=== PATIENT | female | born 1985 | race Caucasian/White ===

== ENCOUNTER 2017-05-21 11:18 | Emergency (ER) | payer BC, OTHER ==
--- NOTE | 2017-05-21 12:34 | ED ---
Fever HPI - General Chief Complaint: Fever Stated Complaint: Fever Time Seen by Provider: 05/21/17 12:06 Source: patient, RN notes reviewed Mode of arrival: ambulatory Limitations: no limitations - History of Present Illness Initial Comments: This is a 31-year-old female who presents to the emergency department with chief complaint of fever. Patient states that she feels like she may have the flu. She states she has been having fevers, chills and body aches. 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 Patient states that her symptoms began yesterday evening. Patient also states that she believes she may have a UTI she is experiencing dysuria and increased frequency. This started yesterday. Denies chest pain, shortness of breath, abdominal pain, nausea or vomiting, constipation or diarrhea, numbness or tingling, headache or vision changes. - Related Data Home Medications Medication Instructions Recorded Confirmed Acetaminophen Tab [Tylenol Tab] 1,000 mg PO Q6HR PRN 03/26/15 03/28/15 Ibuprofen [Motrin] 400 - 600 mg PO Q6HR PRN 03/26/15 03/28/15 Previous Rx's Medication Instructions Recorded Oseltamivir [Tamiflu] 75 mg PO Q12HR #10 cap 05/21/17 Sulfamethox-Tmp 800-160Mg [Bactrim 1 tab PO Q12HR #10 tab 05/21/17 DS 800-160 mg] Allergies Allergy/AdvReac Type Severity Reaction Status Date / Time No Known Allergies Allergy Verified 03/28/15 11:18 Review of Systems ROS Statement: Those systems with pertinent positive or pertinent negative responses have been documented in the HPI. ROS Other: All systems not noted in ROS Statement are negative. Past Medical History Past Medical History: No Reported History Additional Past Medical History / Comment(s): STATES OCCASIONAL HEART FLUTTER IF NERVOUS OR STRESSED- HAS NEVER HAD CHECKED OUT. JUST DELIVERED 01/10/15- PT IS HAVING PAIN WITH WISDOM TOOTH LOWER LEFT SIDE History of Any Multi-Drug Resistant Organisms: None Reported Past Surgical History: No Surgical Hx Reported Past Anesthesia/Blood Transfusion Reactions: No Reported Reaction Past Psychological History: No Psychological Hx Reported Smoking Status: Never smoker - Past Family History Mother Family Medical History: Hypertension General Exam - General Exam Comments Initial Comments: General: Awake and alert, well-developed; in no apparent distress. Patient is very warm to the touch. HEENT: Head atraumatic, normocephalic. Pupils are equal, round and reactive to light. Extraocular movements intact. Oropharynx moist without erythema or exudate. Neck: Supple. Normal ROM. Cardiovascular: Regular rate and rhythm. No murmurs, rubs or gallops. Chest symmetrical. Respiratory: Lungs clear to auscultation bilaterally. No wheezes, rales or rhonchi. Normal respiratory effort with no use of accessory muscles. Abdomen: Soft, non-tender, non-distended. No rigidity, rebound or guarding. Musculoskeletal: Normal ROM, no tenderness bilateral upper and lower extremities. Skin: [place], warm and dry without rashes or lesions. Neurological: Alert and oriented x3. CN II-XII grossly intact. Speech is fluent and answers are appropriate. No focal neuro deficits. Psychiatric: Normal mood and affect. No overt signs of depression or anxiety noted. Limitations: no limitations Course Vital Signs 05/21/17 11:41 Temperature 100.2 F H Pulse Rate 128 H Respiratory 22 Rate Blood Pressure 144/81 O2 Sat by Pulse 98 Oximetry Medical Decision Making - Medical Decision Making This is a 31-year-old female who presents to the emergency department with chief complaint of fever, chills and body aches since yesterday afternoon. 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 She will be started on Tamiflu. Patient also complained of dysuria and increased frequency in urination that started yesterday. UA revealed positive leukocyte esterase and a high white count. Patient will be treated with Bactrim for a urinary tract infection. Patient is in no acute distress at this time. She'll be discharged home. - Lab Data Lab Results 05/21/17 Range/Units 12:21 Urine Color Yellow Urine Appearance Clear (Clear) Urine pH 7.0 (5.0-8.0) Ur Specific [place] 1.020 (1.001-1.035) Urine Protein Trace H (Negative) Urine Glucose (UA) Negative (Negative) Urine Ketones 1+ H (Negative) Urine Blood Negative (Negative) Urine Nitrite Negative (Negative) Urine Bilirubin Negative (Negative) Urine Urobilinogen <2.0 (<2.0) mg/dL Ur Leukocyte Esterase Moderate H (Negative) Urine WBC 45 H (0-5) /hpf Ur Squamous Epith Cells <1 (0-4) /hpf Urine Bacteria Rare H (None) /hpf Urine Mucus Rare H (None) /hpf Disposition Clinical Impression: Influenza, Urinary tract infection Disposition: HOME SELF-CARE Condition: Good Instructions: Influenza (ED), Urinary Tract Infection in Women (ED) Additional Instructions: Please take medications as prescribed. Please drink plenty of fluids. Please follow up with primary care provider within 1-2 days. Return to emergency department if symptoms should worsen or any concerns arise. Prescriptions: Oseltamivir [Tamiflu] 75 mg PO Q12HR #10 cap Sulfamethox-Tmp 800-160Mg [Bactrim DS 800-160 mg] 1 tab PO Q12HR #10 tab Referrals: None,Stated [Primary Care Provider] - 1-2 days Time of Disposition: 13:13
[2017-05-21 12:48] LABS: Appearance,Urine Clear (Clear); Bacteria,Urine Rare /hpf; Bilirubin,Urine Negative (Negative); Blood,Urine Negative (Negative); Color,Urine Yellow; Glucose,Urine (UA) Negative (Negative); Ketones,Urine 1+ (Negative); Leukocyte Esterase,Urine Moderate (Negative); Mucus,Urine Rare /hpf; Nitrite,Urine Negative (Negative); Protein,Urine Trace (Negative); Squamous Epithelial Cell,Urine <1 /hpf (0-4); Urobilinogen,Urine <2.0 mg/dL (<2.0); WBC,Urine 45 /hpf (0-5)
[2017-05-21 13:14] VITALS: BP 134/61; PULSE 114; RESP 18; TEMP 99.8
== END 2017-05-21 13:25 | disposition home or self-care (01) ==
LOC: EC 11:18
DX: J11.1 Influenza due to unidentified influenza virus with other respiratory manifestations (principal); N39.0 Urinary tract infection, site not specified; D72.829 Elevated white blood cell count, unspecified
CPT/HCPCS: 81001; 99283

== ENCOUNTER 2017-10-21 05:13 | Emergency (ER) | payer BC ==
[2017-10-21 05:17] VITALS: BP 142/85; PULSE 85; RESP 16; TEMP 98.3
[2017-10-21] MEDS ORDERED: PENICILLIN VK 500MG STARTER 4 TAB BTL PO STA (07:21)
[2017-10-21] MEDS ORDERED: BUPIVACAINE (PF) 0.5% 30 ML VIAL SQ STA (07:21)
--- NOTE | 2017-10-21 07:26 | ED ---
ENT HPI - General Chief complaint: Dental/Oral Stated complaint: Dental Pain Time Seen by Provider: 10/21/17 07:15 Source: patient, RN notes reviewed, old records reviewed Mode of arrival: ambulatory Limitations: no limitations - History of Present Illness Initial comments: This patient's a 31-year-old female chief complaint of right lower dental pain. She reports it started around 11 AM p.m. last night. Patient states that she does have decayed teeth 30 and 31. She reports she does not see dose at this time. She states that he feels throbbing in pain shoots to the back right ear and neck. Patient reports no trismus. No foul taste or floaters in her mouth.Patient denies any recent fever, chills, shortness of breath, chest pain, back pain, abdominal pain, nausea vomiting, numbness or tingling, dysuria or hematuria, constipation or diarrhea, headaches or visual changes, or any other current symptoms - Related Data Home Medications Medication Instructions Recorded Confirmed Acetaminophen Tab [Tylenol Tab] 1,000 mg PO Q6HR PRN 03/26/15 03/28/15 Ibuprofen [Motrin] 400 - 600 mg PO Q6HR PRN 03/26/15 03/28/15 Previous Rx's Medication Instructions Recorded Oseltamivir [Tamiflu] 75 mg PO Q12HR #10 cap 05/21/17 Sulfamethox-Tmp 800-160Mg [Bactrim 1 tab PO Q12HR #10 tab 05/21/17 DS 800-160 mg] Acetaminophen-Codeine 300-30mg 1 tab PO Q4H PRN 3 Days #15 tablet 10/21/17 [Tylenol w/codeine #3] Penicillin V Potassium [Pen Vee K] 500 mg PO QID #40 tablet 10/21/17 Allergies Allergy/AdvReac Type Severity Reaction Status Date / Time No Known Allergies Allergy Verified 10/21/17 05:16 Review of Systems ROS Statement: Those systems with pertinent positive or pertinent negative responses have been documented in the HPI. ROS Other: All systems not noted in ROS Statement are negative. Past Medical History Past Medical History: No Reported History Additional Past Medical History / Comment(s): STATES OCCASIONAL HEART FLUTTER IF NERVOUS OR STRESSED- HAS NEVER HAD CHECKED OUT. JUST DELIVERED 01/10/15- PT IS HAVING PAIN WITH WISDOM TOOTH LOWER LEFT SIDE History of Any Multi-Drug Resistant Organisms: None Reported Past Surgical History: No Surgical Hx Reported Past Anesthesia/Blood Transfusion Reactions: No Reported Reaction Past Psychological History: No Psychological Hx Reported Smoking Status: Never smoker - Past Family History Mother Family Medical History: Hypertension General Exam - General Exam Comments Initial Comments: This Patient with her 31-year-old female. Alert and oriented. No acute distress. General: Well appearing, well nourished, in no distress. Oriented x 3, normal mood and affect . Ambulating without difficulty. Skin: Good turgor, no rash, unusual bruising or prominent lesions Hair: Normal texture and distribution. HEENT: Head: Normocephalic, atraumatic, no visible or palpable masses, depressions, orEars: EACs clear, TMs translucent & cone of light visualized. hearing intact. Nose: No external lesions, mucosa non-inflamed, septum and turbinates normal Mouth: Mucous membranes moist, no mucosal lesions. Teeth/Gums: Patient has evidence of dental caries of her teeth #30 and 31. Some gingival irritation. Pharynx: Mucosa non-inflamed, no tonsillar hypertrophy or exudate Neck: Supple, without lesions, bruits, or adenopathy, thyroid non-enlarged and non-tender Heart: No cardiomegaly or thrills; regular rate and rhythm, no murmur or gallop Lungs: Clear to auscultation and percussion Musculoskeletal: Normal gait and station. No misalignment, asymmetry, crepitation, defects, tenderness, masses, effusions, decreased range of motion, instability, atrophy or abnormal strength or tone in the head, neck, spine, ribs , pelvis or extremities. Neurologic: CN 2-12 normal. Sensation to pain, touch, and proprioception normal. DTRs normal in upper and lower extremities. No pathologic reflexes. Psychiatric: Oriented X3, intact recent and remote memory, judgment and insight , normal mood and affect. Limitations: no limitations Course Vital Signs 10/21/17 05:14 Temperature 98.3 F Pulse Rate 85 Respiratory 16 Rate Blood Pressure 142/85 O2 Sat by Pulse 100 Oximetry Procedures - Nerve Block Local Anesthetic Used: Marcaine 0.5% Amount of anesthesia used: 3 Side: right Intraoral Nerve Block: inferior alveolar Procedure Successful: Yes Complications: none Patient Tolerated Procedure: well, no complications Medical Decision Making - Medical Decision Making Patient is a 31-year-old female.Her wrist due to complaint of right lower dental pain for the past day. She has had caries over 30 and 31. Patient is given an inferior alveolar block and started on Pen-Vee K. I discussed following up with a dentist for further evaluation and tooth removal. Patient agrees treatment plan will comply. Discussed that there is any worsening redness or swelling of the come she may return for drainage of an abscess. Patient agrees treatment plan will comply. Return parameters were discussed. Disposition Clinical Impression: Dental caries, Toothache Disposition: HOME SELF-CARE Condition: Good Instructions: Dental Caries (ED) Additional Instructions: [facility] [address] [place] [address] [phone] (existing clients only) For new clients: [phone] 1st consult: $50 (includes Xrays) Usually 30% less then private dentist for visits after. [employer] Have to pay $50 for Xrays anmd rest is covered. [phone] Complete entire antibiotic prescription. Follow-up with dentist. Return to the emergency department if any alarming signs or symptoms occur. Prescriptions: Acetaminophen-Codeine 300-30mg [Tylenol w/codeine #3] 1 tab PO Q4H PRN 3 Days # 15 tablet PRN Reason: Pain Penicillin V Potassium [Pen Vee K] 500 mg PO QID #40 tablet Is patient prescribed a controlled substance at d/c from ED?: Yes When asked, does pt state using other controlled substances?: Yes If prescribed controlled substance>3 days was MAPS reviewed?: Prescribed <3 Days If opioid is for acute pain is fill amount 7 days or less?: Yes If Rx opioid, was Start Talking consent form obtained?: Yes Referrals: None,Stated [Primary Care Provider] - 1-2 days Winter Coello MD [STAFF PHYSICIAN] - 1-2 days Time of Disposition: 07:25
== END 2017-10-21 07:52 | disposition home or self-care (01) ==
LOC: EC 05:13
DX: K02.9 Dental caries, unspecified (principal)
CPT/HCPCS: 64400; 99283

== ENCOUNTER → 2020-04-13 | Outpatient (CLI) | payer MEDICAID | END | disposition home or self-care (01) | LOC: LABMAIN 23:18 | PROVIDERS: ATTEND Specialist/Technologist Athletic Trainer | DX: Z20.828 Contact with and (suspected) exposure to other viral communicable diseases (principal) | CPT/HCPCS: 87635 ==

== ENCOUNTER → 2021-01-07 | Outpatient (CLI) | payer MEDICAID, OTHER | END | disposition home or self-care (01) | LOC: LABWHC1 08:31 | PROVIDERS: ATTEND Emergency Medicine | DX: Z20.822 Contact with and (suspected) exposure to COVID-19 (principal) | CPT/HCPCS: 87635 ==

== ENCOUNTER → 2021-03-04 | Outpatient (CLI) | payer MEDICAID, OTHER | END | disposition home or self-care (01) | LOC: LABWHC1 08:57 | PROVIDERS: ATTEND Emergency Medicine | DX: Z03.818 Encounter for observation for suspected exposure to other biological agents ruled out (principal); Z20.822 Contact with and (suspected) exposure to COVID-19 | CPT/HCPCS: 87635 ==

== ENCOUNTER → 2021-03-05 | Outpatient (CLI) | payer MEDICAID, OTHER | END | disposition home or self-care (01) | LOC: LABWHC1 09:03 | PROVIDERS: ATTEND Emergency Medicine | DX: Z03.818 Encounter for observation for suspected exposure to other biological agents ruled out (principal); Z20.828 Contact with and (suspected) exposure to other viral communicable diseases | CPT/HCPCS: 87635 ==

== ENCOUNTER → 2021-04-14 | Outpatient (CLI) | payer MEDICAID, OTHER | END | disposition home or self-care (01) | LOC: LABWHC1 11:15 | PROVIDERS: ATTEND Emergency Medicine | DX: U07.1 COVID-19 (principal) | CPT/HCPCS: 87635 ==

== ENCOUNTER → 2021-04-16 | Outpatient (CLI) | payer MEDICAID, OTHER | END | disposition home or self-care (01) | LOC: LABWHC1 08:14 | PROVIDERS: ATTEND Emergency Medicine | DX: Z11.52 Encounter for screening for COVID-19 (principal); Z20.822 Contact with and (suspected) exposure to COVID-19 | CPT/HCPCS: 87635 ==

== ENCOUNTER → 2021-08-31 | Outpatient (CLI) | payer MEDICAID, OTHER | END | disposition home or self-care (01) | LOC: LAB 12:37 | PROVIDERS: ATTEND Physician Assistant | DX: U07.1 COVID-19 (principal) | CPT/HCPCS: 87502; 87635 ==

== ENCOUNTER 2021-10-16 02:11 | Observation (INO) | payer MEDICAID, OTHER ==
[2021-10-16] MEDS ORDERED: KETOROLAC 15 MG/ML 1 ML VIAL IVP STA ×2 (02:31→08:22)
[2021-10-16] MEDS ORDERED: MORPHINE SULFATE 4 MG/ML SYRINGE IV STA (02:31)
[2021-10-16] MEDS ORDERED: SODIUM CHLORIDE 0.9% 1,000 ML IV STA (02:31)
--- NOTE | 2021-10-16 02:31 | ED ---
Abdominal Pain HPI - General Source: patient, RN notes reviewed, old records reviewed Mode of arrival: ambulatory Limitations: no limitations - History of Present Illness MD Complaint: abdominal pain -: hour(s) Location: RUQ, RLQ, R flank Radiation: back Migration to: other (R shoulder) Severity: moderate Severity scale (1-10): 7 Quality: stabbing, aching Consistency: constant Improves With: nothing Worsens With: nothing Associated Symptoms: nausea Treatments Prior to Arrival: other (none) <Mode Zaragoza - Last Filed: 10/16/21 06:31> <Julius Matos - Last Filed: 10/16/21 13:18> - General Chief Complaint: Abdominal Pain Stated Complaint: Flank Pain Time Seen by Provider: 10/16/21 02:20 - History of Present Illness Initial Comments: This is a 35-year-old female DF for evaluation. Patient presents today for evaluation regards to upper quadrant abdominal pain epigastric abdominal pain right-sided flank pain radiates to her back radiates right shoulder no prior history of same. States it may have started last night at dinner but got better and woke her up from sleep tonight. Patient is without fever no prior history of surgery without significant medical history (Mode Zaragoza) - Related Data Home Medications Medication Instructions Recorded Confirmed Calcium Carb/Mag Ox/Zinc Sulf 1 tab PO TID PRN 10/16/21 10/16/21 [Quq-Nqo-Ypbw 334-134-5 mg Tab] Allergies Allergy/AdvReac Type Severity Reaction Status Date / Time No Known Allergies Allergy Verified 10/16/21 11:14 Review of Systems ROS Other: All systems not noted in ROS Statement are negative. <Mode Zaragoza - Last Filed: 10/16/21 06:31> ROS Other: All systems not noted in ROS Statement are negative. <Julius Matos - Last Filed: 10/16/21 13:18> ROS Statement: Those systems with pertinent positive or pertinent negative responses have been documented in the HPI. Past Medical History Past Medical History: No Reported History Additional Past Medical History / Comment(s): STATES OCCASIONAL HEART FLUTTER IF NERVOUS OR STRESSED- HAS NEVER HAD CHECKED OUT. JUST DELIVERED 01/10/15- PT IS HAVING PAIN WITH WISDOM TOOTH LOWER LEFT SIDE History of Any Multi-Drug Resistant Organisms: None Reported Past Surgical History: No Surgical Hx Reported Past Anesthesia/Blood Transfusion Reactions: No Reported Reaction Past Psychological History: No Psychological Hx Reported Smoking Status: Former smoker, Vaper Past Alcohol Use History: None Reported Past Drug Use History: None Reported - Past Family History Mother Family Medical History: Hypertension <Mode Zaragoza - Last Filed: 10/16/21 06:31> General Exam Limitations: no limitations General appearance: alert, in no apparent distress, anxious Head exam: Present: atraumatic, normocephalic, normal inspection Eye exam: Present: normal appearance, PERRL, EOMI. Absent: scleral icterus, conjunctival injection, periorbital swelling ENT exam: Present: normal exam, mucous membranes moist Neck exam: Present: normal inspection. Absent: tenderness, meningismus, lymphadenopathy Respiratory exam: Present: normal lung sounds bilaterally. Absent: respiratory distress, wheezes, rales, rhonchi, stridor Cardiovascular Exam: Present: normal rhythm, tachycardia, normal heart sounds. Absent: systolic murmur, diastolic murmur, rubs, gallop, clicks GI/Abdominal exam: Present: soft, tenderness (Right upper quadrant), normal bowel sounds. Absent: distended, guarding, rebound, rigid Extremities exam: Present: normal inspection, full ROM, normal capillary refill. Absent: tenderness, pedal edema, joint swelling, calf tenderness Back exam: Present: normal inspection Neurological exam: Present: alert, oriented X3, CN II-XII intact Psychiatric exam: Present: normal affect, normal mood Skin exam: Present: warm, dry, intact, normal color. Absent: rash <Mode Zaragoza - Last Filed: 10/16/21 06:31> Course <Mode Zaragoza - Last Filed: 10/16/21 06:31> Vital Signs 10/16/21 10/16/21 10/16/21 02:11 02:45 06:29 Temperature 98.6 F Pulse Rate 116 H 78 77 Respiratory 22 Rate Blood Pressure 145/83 129/84 108/68 O2 Sat by Pulse 100 99 99 Oximetry 10/16/21 10/16/21 08:00 12:50 Temperature Pulse Rate 72 64 Respiratory 18 18 Rate Blood Pressure 111/76 112/79 O2 Sat by Pulse 99 98 Oximetry - Reevaluation(s) Reevaluation #1: 10/16/21 06:33 Medical record is reviewed (Mode Zaragoza) Reevaluation #2: 10/16/21 06:33 Patient is currently adequate pain control (Mode Zaragoza) Medical Decision Making - Lab Data Result diagrams: 10/16/21 02:45 10/16/21 02:45 <Mode Zaragoza - Last Filed: 10/16/21 06:31> - Lab Data Result diagrams: 10/16/21 02:45 10/16/21 02:45 - Radiology Data Radiology results: report reviewed (Imaging reviewed as well as reports 1.4 cm calculus seen in the gallbladder at the neck mild inflammation noted. Please see complete report ultrasound), image reviewed <Julius Matos - Last Filed: 10/16/21 13:18> - Medical Decision Making Initially patient was seen in the emergency department by Dr. Shea who was on-call initially the patient seemed fine with this evaluation. She later changed her mind and did request a family suggested surgeon. I did discuss the case with Dr. Nesbitt as well as with Dr. Muniz.. Patient will be admitted with surgical consultation by Dr. Nesbitt. Pain is better controlled at this time. Patient still has right upper quadrant tenderness (Julius Matos) - Lab Data Lab Results 10/16/21 10/16/21 10/16/21 Range/Units 02:45 02:45 03:32 WBC 8.1 (3.8-10.6) k/uL RBC 4.36 (3.80-5.40) m/uL Hgb 14.1 (11.4-16.0) gm/dL Hct 39.5 (34.0-46.0) % MCV 90.6 (80.0-100.0) fL MCH 32.2 (25.0-35.0) pg MCHC 35.5 (31.0-37.0) g/dL RDW 12.4 (11.5-15.5) % Plt Count 320 (150-450) k/uL MPV 7.1 Neutrophils % 63 % Lymphocytes % 27 % Monocytes % 6 % Eosinophils % 3 % Basophils % 1 % Neutrophils # 5.1 (1.3-7.7) k/uL Lymphocytes # 2.2 (1.0-4.8) k/uL Monocytes # 0.5 (0-1.0) k/uL Eosinophils # 0.2 (0-0.7) k/uL Basophils # 0.1 (0-0.2) k/uL Sodium 138 (137-145) mmol/L Potassium 3.8 (3.5-5.1) mmol/L Chloride 106 (98-107) mmol/L Carbon Dioxide 25 (22-30) mmol/L Anion Gap 7 mmol/L BUN 14 (7-17) mg/dL Creatinine 0.85 (0.52-1.04) mg/dL Est GFR (CKD-EPI)AfAm >90 (>60 ml/min/1.73 sqM) Est GFR (CKD-EPI)NonAf 89 (>60 ml/min/1.73 sqM) Glucose 118 H (74-99) mg/dL Calcium 8.9 (8.4-10.2) mg/dL Total Bilirubin 0.2 (0.2-1.3) mg/dL AST 16 (14-36) U/L ALT 11 (4-34) U/L Alkaline Phosphatase 74 (38-126) U/L Total Protein 7.3 (6.3-8.2) g/dL Albumin 4.5 (3.5-5.0) g/dL Amylase 61 (30-110) U/L Lipase 90 (23-300) U/L Urine Color Yellow Urine Appearance Clear (Clear) Urine pH 6.0 (5.0-8.0) Ur Specific [place] 1.023 (1.001-1.035) Urine Protein Negative (Negative) Urine Glucose (UA) Negative (Negative) Urine Ketones Negative (Negative) Urine Blood Negative (Negative) Urine Nitrite Negative (Negative) Urine Bilirubin Negative (Negative) Urine Urobilinogen <2.0 (<2.0) mg/dL Ur Leukocyte Esterase Negative (Negative) Urine HCG, Qual (Not Detectd) 10/16/21 Range/Units 03:32 WBC (3.8-10.6) k/uL RBC (3.80-5.40) m/uL Hgb (11.4-16.0) gm/dL Hct (34.0-46.0) % MCV (80.0-100.0) fL MCH (25.0-35.0) pg MCHC (31.0-37.0) g/dL RDW (11.5-15.5) % Plt Count (150-450) k/uL MPV Neutrophils % % Lymphocytes % % Monocytes % % Eosinophils % % Basophils % % Neutrophils # (1.3-7.7) k/uL Lymphocytes # (1.0-4.8) k/uL Monocytes # (0-1.0) k/uL Eosinophils # (0-0.7) k/uL Basophils # (0-0.2) k/uL Sodium (137-145) mmol/L Potassium (3.5-5.1) mmol/L Chloride (98-107) mmol/L Carbon Dioxide (22-30) mmol/L Anion Gap mmol/L BUN (7-17) mg/dL Creatinine (0.52-1.04) mg/dL Est GFR (CKD-EPI)AfAm (>60 ml/min/1.73 sqM) Est GFR (CKD-EPI)NonAf (>60 ml/min/1.73 sqM) Glucose (74-99) mg/dL Calcium (8.4-10.2) mg/dL Total Bilirubin (0.2-1.3) mg/dL AST (14-36) U/L ALT (4-34) U/L Alkaline Phosphatase (38-126) U/L Total Protein (6.3-8.2) g/dL Albumin (3.5-5.0) g/dL Amylase (30-110) U/L Lipase (23-300) U/L Urine Color Urine Appearance (Clear) Urine pH (5.0-8.0) Ur Specific [place] (1.001-1.035) Urine Protein (Negative) Urine Glucose (UA) (Negative) Urine Ketones (Negative) Urine Blood (Negative) Urine Nitrite (Negative) Urine Bilirubin (Negative) Urine Urobilinogen (<2.0) mg/dL Ur Leukocyte Esterase (Negative) Urine HCG, Qual Not Detected (Not Detectd) Disposition <Mode Zaragoza - Last Filed: 10/16/21 06:31> Decision Date: 10/16/21 Decision Time: 12:00 <Julius Matos - Last Filed: 10/16/21 13:18> Clinical Impression: Abdominal pain, Cholecystitis, Cholelithiasis Disposition: ADMITTED IP TO THIS HOSP Condition: Stable Referrals: Aida Muniz MD [Primary Care Provider] - 1-2 days
[2021-10-16 02:55] LABS: Basophils # (A) 0.1 k/uL (0-0.2); Basophils % (A) 1 %; Eosinophils # (A) 0.2 k/uL (0-0.7); Eosinophils % (A) 3 %; HCT 39.5 % (34.0-46.0); HGB 14.1 gm/dL (11.4-16.0); Lymphocytes # (A) 2.2 k/uL (1.0-4.8); Lymphocytes % (A) 27 %; MCH 32.2 pg (25.0-35.0); MCHC 35.5 g/dL (31.0-37.0); MCV 90.6 fL (80.0-100.0); Mean Platelet Volume 7.1; Monocytes # (A) 0.5 k/uL (0-1.0); Monocytes % (A) 6 %; Neutrophils # (A) 5.1 k/uL (1.3-7.7); Neutrophils % (A) 63 %; Platelet Count 320 k/uL (150-450); RBC 4.36 m/uL (3.80-5.40); RDW 12.4 % (11.5-15.5); WBC 8.1 k/uL (3.8-10.6)
[2021-10-16 03:04] LABS: ALT 11 U/L (4-34); AST 16 U/L (14-36); African American GFR (CKD) >90 (>60 ml/min/1.73 sqM); Albumin 4.5 g/dL (3.5-5.0); Alkaline Phosphatase 74 U/L (38-126); Amylase 61 U/L (30-110); Anion Gap 7 mmol/L; Blood Urea Nitrogen 14 mg/dL (7-17); Calcium 8.9 mg/dL (8.4-10.2); Carbon Dioxide 25 mmol/L (22-30); Chloride 106 mmol/L (98-107); Glucose 118 mg/dL (74-99); Lipase 90 U/L (23-300); Non-African American GFR(CKD) 89 (>60 ml/min/1.73 sqM); Potassium 3.8 mmol/L (3.5-5.1); Sodium 138 mmol/L (137-145); Total Bilirubin 0.2 mg/dL (0.2-1.3); Total Protein 7.3 g/dL (6.3-8.2)
[2021-10-16 03:58] LABS: Appearance,Urine Clear (Clear); Bilirubin,Urine Negative (Negative); Blood,Urine Negative (Negative); Color,Urine Yellow; Glucose,Urine (UA) Negative (Negative); Ketones,Urine Negative (Negative); Leukocyte Esterase,Urine Negative (Negative); Nitrite,Urine Negative (Negative); Protein,Urine Negative (Negative); Specific Gravity,Urine 1.023 (1.001-1.035); Urobilinogen,Urine <2.0 mg/dL (<2.0)
--- NOTE | 2021-10-16 08:14 | CT ---
EXAM: CT Abdomen and Pelvis Without Intravenous Contrast CLINICAL HISTORY: ITS.REASON CT Reason: abdominal pain TECHNIQUE: Axial computed tomography images of the abdomen and pelvis without intravenous contrast. CTDI is 11.8 mGy and DLP is 667.7 mGy-cm. This CT exam was performed using one or more of the following dose reduction techniques: automated exposure control, adjustment of the mA and/or kV according to patient size, and/or use of iterative reconstruction technique. COMPARISON: No relevant prior studies available. FINDINGS: Lung bases: Unremarkable. No mass. No consolidation. ABDOMEN: Liver: Unremarkable. Gallbladder and bile ducts: Cholelithiasis. A 1.1 cm stone is seen at the gallbladder neck, which may be impacted. No ductal dilation. Pancreas: Unremarkable. No ductal dilation. Spleen: Unremarkable. No splenomegaly. Adrenals: Unremarkable. No mass. Kidneys and ureters: Unremarkable. No obstructing stones. No hydronephrosis. Stomach and bowel: Unremarkable. No obstruction. No mucosal thickening. PELVIS: Appendix: No findings to suggest acute appendicitis. Bladder: Unremarkable. No stones. Reproductive: Bilateral small ovarian cysts/follicles, largest of which measures 2.4 cm in greatest axial dimension on the left. ABDOMEN and PELVIS: Intraperitoneal space: Unremarkable. No free air. No significant fluid collection. Bones/joints: No acute fracture. No dislocation. Soft tissues: Unremarkable. Vasculature: Unremarkable. No abdominal aortic aneurysm. Lymph nodes: Unremarkable. No enlarged lymph nodes. IMPRESSION: 1. Cholelithiasis. A 1.1 cm stone is seen at the gallbladder neck, which may be impacted. Right upper quadrant ultrasound is recommended for further evaluation. 2. Bilateral small ovarian cysts/follicles, largest of which measures 2. 4 cm in greatest axial dimension on the left. Pelvic ultrasound is recommended for further evaluation.
--- NOTE | 2021-10-16 10:03 | US ---
EXAMINATION TYPE: US gallbladder DATE OF EXAM: 10/16/2021 COMPARISON: CT 10/16/2021 CLINICAL HISTORY: Cholelithiasis, right upper quadrant pain. Cholelithiasis, RUQ Pain EXAM MEASUREMENTS: Liver Length: 15.7 cm Gallbladder Wall: 0.3 cm CBD: 0.3 cm Right Kidney: 10.9 x 4.8 x 5.1 cm Pancreas: wnl Liver: wnl, No abnormalities seen Gallbladder: Stone noted in fundus of GB, measuring 1.4cm Evidence for sonographic Tejeda's sign: No CBD: wnl Right Kidney: No hydronephrosis or masses seen IMPRESSION: 1. Cholelithiasis.
--- NOTE | 2021-10-16 12:24 | P.GSCN ---
History of Present Illness Consult date: 10/16/21 Reason for Consult: Right upper quadrant pain History of present illness: This a 35-year-old female who presents emergently complaints of right quadrant pain. Patient underwent ultrasound spelled have a impacted stone medically gallbladder measuring 1.4 cm. Past Medical History Past Medical History: No Reported History Additional Past Medical History / Comment(s): STATES OCCASIONAL HEART FLUTTER IF NERVOUS OR STRESSED- HAS NEVER HAD CHECKED OUT. JUST DELIVERED 01/10/15- PT IS HAVING PAIN WITH WISDOM TOOTH LOWER LEFT SIDE History of Any Multi-Drug Resistant Organisms: None Reported Past Surgical History: No Surgical Hx Reported Past Anesthesia/Blood Transfusion Reactions: No Reported Reaction Past Psychological History: No Psychological Hx Reported Smoking Status: Former smoker, Vaper Past Alcohol Use History: None Reported Past Drug Use History: None Reported - Past Family History Mother Family Medical History: Hypertension Medications and Allergies Home Medications Medication Instructions Recorded Confirmed Type Calcium Carb/Mag Ox/Zinc Sulf 1 tab PO TID PRN 10/16/21 10/16/21 History [Yed-Ptd-Bkob 334-134-5 mg Tab] Allergies Allergy/AdvReac Type Severity Reaction Status Date / Time No Known Allergies Allergy Verified 10/16/21 11:14 Surgical - Exam Vital Signs Temp Pulse Resp BP Pulse Ox 98.6 F 116 H 22 145/83 100 10/16/21 02:11 10/16/21 02:11 10/16/21 02:11 10/16/21 02:11 10/16/21 02:11 - General well developed, well nourished, no distress - Eyes PERRL - ENT normal pinna - Neck no masses - Respiratory normal expansion - Cardiovascular Rhythm: regular - Abdomen Mild right quadrant tenderness Abdomen: soft Results - Labs 10/16/21 02:45 10/16/21 02:45 Abnormal Lab Results - Last 24 Hours (Table) 10/16/21 Range/Units 02:45 Glucose 118 H (74-99) mg/dL Diabetes panel 10/16/21 Range/Units 02:45 Sodium 138 (137-145) mmol/L Potassium 3.8 (3.5-5.1) mmol/L Chloride 106 (98-107) mmol/L Carbon Dioxide 25 (22-30) mmol/L BUN 14 (7-17) mg/dL Creatinine 0.85 (0.52-1.04) mg/dL Glucose 118 H (74-99) mg/dL Calcium 8.9 (8.4-10.2) mg/dL AST 16 (14-36) U/L ALT 11 (4-34) U/L Alkaline Phosphatase 74 (38-126) U/L Total Protein 7.3 (6.3-8.2) g/dL Albumin 4.5 (3.5-5.0) g/dL Calcium panel 10/16/21 Range/Units 02:45 Calcium 8.9 (8.4-10.2) mg/dL Albumin 4.5 (3.5-5.0) g/dL Pituitary panel 10/16/21 Range/Units 02:45 Sodium 138 (137-145) mmol/L Potassium 3.8 (3.5-5.1) mmol/L Chloride 106 (98-107) mmol/L Carbon Dioxide 25 (22-30) mmol/L BUN 14 (7-17) mg/dL Creatinine 0.85 (0.52-1.04) mg/dL Glucose 118 H (74-99) mg/dL Calcium 8.9 (8.4-10.2) mg/dL Adrenal panel 10/16/21 Range/Units 02:45 Sodium 138 (137-145) mmol/L Potassium 3.8 (3.5-5.1) mmol/L Chloride 106 (98-107) mmol/L Carbon Dioxide 25 (22-30) mmol/L BUN 14 (7-17) mg/dL Creatinine 0.85 (0.52-1.04) mg/dL Glucose 118 H (74-99) mg/dL Calcium 8.9 (8.4-10.2) mg/dL Total Bilirubin 0.2 (0.2-1.3) mg/dL AST 16 (14-36) U/L ALT 11 (4-34) U/L Alkaline Phosphatase 74 (38-126) U/L Total Protein 7.3 (6.3-8.2) g/dL Albumin 4.5 (3.5-5.0) g/dL - Imaging US - abdomen: report reviewed (1.4 cm stone neck of the gallbladder) Assessment and Plan Assessment: Symptomatic cholelithiasis. The patient should undergo laparoscopic cholecystectomy. Patient wishes to think about surgery.
[2021-10-16] MEDS ORDERED: ONDANSETRON 4 MG/2 ML VIAL IVP PRN (12:44)
[2021-10-16] MEDS ORDERED: NALOXONE 0.4 MG/ML 1 ML VIAL IV PRN (13:18)
[2021-10-16] MEDS ORDERED: KETOROLAC 15 MG/ML 1 ML VIAL IVP PRN (13:18)
[2021-10-16] MEDS ORDERED: PIPERACILLIN-TAZOBACTAM 3.375 GM in SODIUM CHLORIDE 0.9% 100 ML IVPB STA (13:31)
--- NOTE | 2021-10-16 13:49 | P.GSCN ---
History of Present Illness Consult date: 10/16/21 History of present illness: CHIEF COMPLAINT: Right upper quadrant abdominal pain HISTORY OF PRESENT ILLNESS: This is a 35-year-old female who presented with right upper quadrant abdominal pain that started at 12:45 last night. Patient reports that she ate chicken Yessy yesterday and had been having nausea. Then the right upper quadrant pain started and it radiated to the right back and then up into the right shoulder. She denies any fever chills or sweats. Her CAT scan had shown a 1.1 cm stone in the gallbladder neck which may be impacted. Her ultrasound had shown evidence of gallstones. White count is normal. She denies any prior cardiac history. Denies any prior surgical history. PAST MEDICAL HISTORY: See list. PAST SURGICAL HISTORY: See list. MEDICATIONS: See list. ALLERGIES: See list. SOCIAL HISTORY: No illicit drug use. REVIEW OF SYSTEMS: CONSTITUTIONAL: Denies fever or chills. HEENT: Denies blurred vision, vision changes, or eye pain. Denies hemoptysis ENDOCRINE: Denies heat or cold intolerance. CARDIOVASCULAR: Denies chest pain or pressure. RESPIRATORY: No shortness of breath. GASTROINTESTINAL: Please refer to HPI NEURO: Denies history of seizures. PSYCH: No depression or suicidal ideation HEMATOLOGIC: Denies bleeding disorders. LYMPHATIC: The patient denies any lumps and bumps around the neck. GENITOURINARY: Denies any blood in urine or increased urinary frequency. MUSCULOSKELETAL: Denies myalgias. Denies joint swelling. Denies decreased range of motion beyond patients baseline. SKIN: Denies pruitis. Denies rash. PHYSICAL EXAM: VITAL SIGNS: Reviewed GENERAL: Well-developed in no acute distress. HEENT: No sclera icterus. Extraocular movements grossly intact. Moist buccal mucosa. Head is atraumatic, normocephalic. Hears conversational speech. No nasal drainage. NECK: Supple without lymphadenopathy. CHEST: Non-labored respirations and equal bilateral excursions. CARDIOVASCULAR: Palpable 2+ radial pulses. ABDOMEN: Soft. Nondistended. Tenderness with palpation of the right upper quadrant MUSCULOSKELETAL: No clubbing or cyanosis. NEUROLOGIC: No focal or lateralizing signs. Cranial nerves II through XII grossly intact. PSYCH: Appropriate affect. Alert and oriented to person, place and time. SKIN: Well perfused. Good skin turgor. LABORATORY DATA: WBC is 8.1 Hgb 14.1 platelets 320 Sodium 138 potassium 3.8 creatinine 0.85 Total bili 0.2 AST 16 ALT 11 lipase 90 Urine hCG not detected IMAGING: Computed tomography scan showing cholelithiasis. A 1.1 cm stone in seen at the gallbladder neck which may be impacted. Bilateral small ovarian cysts/follicles largest of which measures 2.4 cm on the left Ultrasound shows cholelithiasis. Tejeda sign negative ASSESSMENT: 1. Acute cholecystitis with cholelithiasis PLAN: -Patient scheduled for robotic cholecystectomy today with Dr. Georges -Keep patient nothing by mouth -Start IV antibiotics -Continue IV fluid -Continue Toradol as needed for pain -And IV Tylenol for pain -Continue Zofran as needed for nausea Thank you for this consultation Physician [facility] note has been reviewed by physician. Signing provider agrees with the documented findings, assessment, and plan of care. Past Medical History Past Medical History: No Reported History Additional Past Medical History / Comment(s): STATES OCCASIONAL HEART FLUTTER IF NERVOUS OR STRESSED- HAS NEVER HAD CHECKED OUT. JUST DELIVERED 01/10/15- PT IS HAVING PAIN WITH WISDOM TOOTH LOWER LEFT SIDE History of Any Multi-Drug Resistant Organisms: None Reported Past Surgical History: No Surgical Hx Reported Past Anesthesia/Blood Transfusion Reactions: No Reported Reaction Past Psychological History: No Psychological Hx Reported Smoking Status: Former smoker, Vaper Past Alcohol Use History: None Reported Past Drug Use History: None Reported - Past Family History Mother Family Medical History: Hypertension Medications and Allergies Home Medications Medication Instructions Recorded Confirmed Type Calcium Carb/Mag Ox/Zinc Sulf 1 tab PO TID PRN 10/16/21 10/16/21 History [Drk-Gkz-Sxbl 334-134-5 mg Tab] Allergies Allergy/AdvReac Type Severity Reaction Status Date / Time No Known Allergies Allergy Verified 10/16/21 11:14 Surgical - Exam Vital Signs Temp Pulse Resp BP Pulse Ox 98.6 F 116 H 22 145/83 100 10/16/21 02:11 10/16/21 02:11 10/16/21 02:11 10/16/21 02:11 10/16/21 02:11 Results - Labs 10/16/21 02:45 10/16/21 02:45 Abnormal Lab Results - Last 24 Hours (Table) 10/16/21 Range/Units 02:45 Glucose 118 H (74-99) mg/dL Diabetes panel 10/16/21 Range/Units 02:45 Sodium 138 (137-145) mmol/L Potassium 3.8 (3.5-5.1) mmol/L Chloride 106 (98-107) mmol/L Carbon Dioxide 25 (22-30) mmol/L BUN 14 (7-17) mg/dL Creatinine 0.85 (0.52-1.04) mg/dL Glucose 118 H (74-99) mg/dL Calcium 8.9 (8.4-10.2) mg/dL AST 16 (14-36) U/L ALT 11 (4-34) U/L Alkaline Phosphatase 74 (38-126) U/L Total Protein 7.3 (6.3-8.2) g/dL Albumin 4.5 (3.5-5.0) g/dL Calcium panel 10/16/21 Range/Units 02:45 Calcium 8.9 (8.4-10.2) mg/dL Albumin 4.5 (3.5-5.0) g/dL Pituitary panel 10/16/21 Range/Units 02:45 Sodium 138 (137-145) mmol/L Potassium 3.8 (3.5-5.1) mmol/L Chloride 106 (98-107) mmol/L Carbon Dioxide 25 (22-30) mmol/L BUN 14 (7-17) mg/dL Creatinine 0.85 (0.52-1.04) mg/dL Glucose 118 H (74-99) mg/dL Calcium 8.9 (8.4-10.2) mg/dL Adrenal panel 10/16/21 Range/Units 02:45 Sodium 138 (137-145) mmol/L Potassium 3.8 (3.5-5.1) mmol/L Chloride 106 (98-107) mmol/L Carbon Dioxide 25 (22-30) mmol/L BUN 14 (7-17) mg/dL Creatinine 0.85 (0.52-1.04) mg/dL Glucose 118 H (74-99) mg/dL Calcium 8.9 (8.4-10.2) mg/dL Total Bilirubin 0.2 (0.2-1.3) mg/dL AST 16 (14-36) U/L ALT 11 (4-34) U/L Alkaline Phosphatase 74 (38-126) U/L Total Protein 7.3 (6.3-8.2) g/dL Albumin 4.5 (3.5-5.0) g/dL
[2021-10-16] MEDS: SODIUM CHLORIDE 0.9% 1,000 ML IV SCH ×2 (13:55→21:20)
[2021-10-16] MEDS ORDERED: SCOPOLAMINE 1 MG/72 HR PATCH TRANSDERM SCH (14:15)
[2021-10-16] MEDS ORDERED: DEXAMETHASONE SOD PHOSPHATE 4 MG/ML 1 ML VIAL IVP ONE (14:27)
[2021-10-16] MEDS ORDERED: ONDANSETRON 4 MG/2 ML VIAL IVP ONE (14:27)
[2021-10-16] MEDS ORDERED: LACTATED RINGERS 1,000 ML IV ONE (14:27)
--- NOTE | 2021-10-16 14:37 | P.HPIM ---
History of Present Illness H&P Date: 10/16/21 HISTORY OF PRESENT ILLNESS This is a 35-year-old female patient with no significant past medical history, history of former smoking. Patient presented to [facility] emergency center for upper abdominal pain and epigastric pain radiating to her back and right shoulder. No fever. She was found to be afebrile, heart rate initially 116, blood pressure 145/83, pulse ox 100%. CBC was unremarkable. Electrolytes and renal function normal. Blood sugar 118. Urine hCG not detected. CAT scan of the abdomen and pelvis without contrast revealed cholelithiasis. A 1.1 cm stone in the gallbladder neck may be impacted. Right upper quadrant ultrasound recommended. Bilateral small ovarian cysts. Gallbladder ultrasound revealed cholelithiasis. Patient is seen in the emergency center waiting for a bed on the [facility] floor, consult with general surgery with plan for surgical intervention this afternoon. REVIEW OF SYSTEMS Constitutional: No fever, no chills, no night sweats. No weight change. No weakness, fatigue or lethargy. No daytime sleepiness. EENT: No headache. No blurred vision or double vision, no loss of vision. No loss of Hearing, no ringing in the ears, no dizziness. No nasal drainage or congestion. No epistaxis. No sore throat. Lungs: No shortness of breath, cough, no sputum production. No wheezing. Cardiovascular: No chest pain, no lower extremity edema. No palpitations. No paroxysmal nocturnal dyspnea. No orthopnea. No lightheadedness or dizziness. No syncopal episodes. Abdominal: No abdominal pain. No nausea, vomiting. No diarrhea. No constipation. No bloody or tarry stools. No loss of appetite. Genitourinary: No dysuria, increased frequency, urgency. No urinary retention. Musculoskeletal: No myalgias. No muscle weakness, no gait dysfunction, no frequent falls. No back pain. No neck pain. Integumentary: No wounds, no lesions. No rash or pruritus. No unusual bruising. No change in hair or nails. Neurologic: No aphasia. No facial droop. No change in mentation. No head injury. No headache. No paralysis. No paresthesia. Psychiatric: No depression. No anxiety. No mood swings. Endocrine: No abnormal blood sugars. No weight change. No excessive sweating or thirst. No cold intolerance. MEDICAL HISTORY None SURGICAL HISTORY None SOCIAL HISTORY Patient was a smoker of a half a pack per day for approximately 10 years and quit 7 years ago. She occasionally babes. She has rare alcohol intake. No marijuana or illicit drug use. FAMILY HISTORY Mother is alive with history of atrial fibrillation and breast cancer. Father is alive with history of hyperlipidemia and prostate cancer. Patient has 2 brothers with no major medical problems and 3 children with no major medical problems. PHYSICAL EXAMINATION Gen: This is a 35-year-old female, no respiratory distress, resting in the ER stretcher. HEENT: Head is atraumatic, normocephalic. Pupils equal, round. Sclerae is anicteric. NECK: Supple. No JVD. No lymphadenopathy. No thyromegaly. LUNGS: Clear to auscultation. No wheezes or rhonchi. No intercostal retractions. HEART: Regular rate and rhythm. No murmur. ABDOMEN: Soft. Bowel sounds are present. No masses. RUQ tenderness. EXTREMITIES: No pedal edema. No calf tenderness. Dorsalis pedis +2 bilaterally. NEUROLOGICAL: Patient is awake, alert and oriented x3. Cranial nerves 2 through 12 are grossly intact. ASSESSMENT AND PLAN 1. Acute cholecystitis with cholelithiasis. Consult with general surgery. Patient is scheduled for laparoscopic cholecystectomy later today with Dr. Buchanan. Continue Toradol as needed for pain, Zofran as needed for nausea, continue Zosyn 3.375 g IV piggyback every 8 hours, continue IV fluids 0.9 normal saline at 130 mL per hour. 2. GI prophylaxis. Protonix 40 mg IV push daily. 3. DVT prophylaxis. SCDs and SATHISH hose. 4. Respiratory prophylaxis. Incentive spirometry to reduce incidence of atelectasis and hospital acquired pneumonia.. Patient is observation status. DISCHARGE PLAN Home tomorrow. Impression and plan of care have been directed as dictated by the signing physician. Danielle Cortez nurse practitioner acting as scribe for signing physician. Past Medical History Past Medical History: No Reported History Additional Past Medical History / Comment(s): STATES OCCASIONAL HEART FLUTTER IF NERVOUS OR STRESSED- HAS NEVER HAD CHECKED OUT. JUST DELIVERED 01/10/15- PT IS HAVING PAIN WITH WISDOM TOOTH LOWER LEFT SIDE History of Any Multi-Drug Resistant Organisms: None Reported Past Surgical History: No Surgical Hx Reported Past Anesthesia/Blood Transfusion Reactions: No Reported Reaction Past Psychological History: No Psychological Hx Reported Smoking Status: Former smoker, Vaper Past Alcohol Use History: None Reported Past Drug Use History: None Reported - Past Family History Mother Family Medical History: Hypertension Medications and Allergies Home Medications Medication Instructions Recorded Confirmed Type Calcium Carb/Mag Ox/Zinc Sulf 1 tab PO TID PRN 10/16/21 10/16/21 History [Fah-Rhh-Zcyz 334-134-5 mg Tab] Allergies Allergy/AdvReac Type Severity Reaction Status Date / Time No Known Allergies Allergy Verified 10/16/21 14:04 Physical Exam Vitals: Vital Signs Temp Pulse Resp BP Pulse Ox 10/16/21 12:50 64 18 112/79 98 10/16/21 08:00 72 18 111/76 99 10/16/21 06:29 77 108/68 99 10/16/21 02:45 78 129/84 99 10/16/21 02:11 98.6 F 116 H 22 145/83 100 Intake and Output 10/15/21 10/16/21 10/16/21 22:59 06:59 14:59 Other: Weight 80.286 kg Results CBC & Chem 7: 10/17/21 05:13 10/17/21 05:13 Labs: Abnormal Lab Results - Last 24 Hours (Table) 10/16/21 Range/Units 02:45 Glucose 118 H (74-99) mg/dL
[2021-10-16] MEDS ORDERED: ACETAMINOPHEN TAB 500 MG TAB ONE (15:09)
[2021-10-16] MEDS ORDERED: HEPARIN SODIUM,PORCINE/PF 5,000 UNIT/0.5 ML SYRINGE SQ ONE (15:09)
[2021-10-16] MEDS ORDERED: MIDAZOLAM 2 MG/2 ML VIAL IVP ONE (15:19)
[2021-10-16] MEDS ORDERED: MELOXICAM 7.5 MG TAB PO ONE (16:00)
[2021-10-16] MEDS ORDERED: INDOCYANINE GREEN 25 MG VIAL IV STA (16:04)
[2021-10-16] MEDS ORDERED: INDOCYANINE GREEN 25 MG VIAL IV ONE (16:10)
[2021-10-16] MEDS ORDERED: HYDROmorphone (PF) 1 MG/ML ONE (16:10)
[2021-10-16] MEDS ORDERED: LIDOCAINE 2% INJ 20 MG/ML (2 ML VIAL) ONE (16:10)
[2021-10-16] MEDS ORDERED: fentaNYL (PF) 50 MCG/ML 2 ML AMP ONE (16:10)
[2021-10-16] MEDS ORDERED: PROPOFOL 10 MG/ML 20 ML VIAL IV ONE (16:10)
[2021-10-16] MEDS ORDERED: MIDAZOLAM 2 MG/2 ML VIAL ONE (16:10)
[2021-10-16] MEDS ORDERED: ROCURONIUM 10 MG/ML (5 ML VIAL) IV ONE (16:10)
[2021-10-16] MEDS ORDERED: GLYCOPYRROLATE 0.2 MG/ML 2 ML VIAL ONE (16:10)
[2021-10-16] MEDS ORDERED: NEOSTIGMINE 1 MG/ML 10 ML VIAL ONE (16:10)
[2021-10-16] MEDS ORDERED: SUCCINYLCHOLINE CHLORIDE 100 MG/5 ML SYR IV ONE (16:10)
[2021-10-16] MEDS ORDERED: SODIUM CHLORIDE 0.9% 100 ML with ceFAZolin 2,000 MG IV ONE ×2 (16:15)
[2021-10-16] MEDS ORDERED: BUPIVACAIN-EPI 0.25%-1:200,000 30 ML VIAL SQ ONE ×2 (16:30→16:39)
[2021-10-16] MEDS ORDERED: D5-0.45% NACL WITH KCL 20MEQ/L 1,000 ML IV SCH (18:00)
[2021-10-16] MEDS: KETOROLAC 15 MG/ML 1 ML VIAL IVP SCH (18:03)
--- NOTE | 2021-10-16 18:04 | P.HPADDEND ---
H&P Addendum H&P Addendum Date: 10/16/21 Benefits and risks of robotic cholecystectomy described in detail. We'll proceed with robotic cholecystectomy as described.
--- NOTE | 2021-10-16 18:05 | P.OP ---
Date of Procedure: 10/16/21 Description of Procedure: SURGEON: JACKIE HENDERSON MD PREOPERATIVE DIAGNOSES: 1. Symptomatic gallstones 2. Right upper quadrant abdominal pain POSTOPERATIVE DIAGNOSES: 1. Symptomatic gallstones 2. Right upper quadrant abdominal pain 3. Chronic cholecystitis OPERATION: Robotic-assisted da Stephen Xi laparoscopic cholecystectomy, multiport with FIREFLY ESTIMATED BLOOD LOSS: 5 mL. SPECIMENS REMOVED: Gallbladder. COMPLICATIONS: None. OPERATIVE FINDINGS: 1. Symptomatic gallstones INDICATIONS: The patient is a 35-year-old female who presents with symptomatic gallstones. Robotic assisted laparoscopic approach was described. Benefits and risks of the procedure including but not limited to bleeding, infection, injury to the biliary tree was described. Informed consent was obtained. DESCRIPTION OF PROCEDURE: Patient was brought to the operating room, placed in supine position. After general induction, the abdomen had been prepped and draped in standard sterile fashion. The robotic da Stephen XI system was primed. After a timeout protocol was performed, the patient had been prepped and draped in standard sterile fashion. The patient was injected with indocyanine green. A 5 mm 0 degrees laparoscopic trocar entry was performed along the left upper quadrant. The abdomen insufflated to 15 mmHg pressure which was tolerated well. Diagnostic laparoscopy demonstrated no injury to bowel viscera or mesentery. The liver surface was unremarkable. Next, two 8 mm robotic ports were placed along the right upper abdomen. The camera 8-mm port was maintained along the epigastrium. Another 8 mm port was placed along the left upper abdominal wall after exchanging the 5 mm port. Please note that the ports were placed at least 10 to 15 cm away from the target anatomy of the gallbladder. The robot was docked along the left lateral abdomen. The patient was repositioned in reverse Trendelenburg position. Using a grasper for arm 3, a grasper for arm 4, including hook cautery for arm 1, the robotic system was docked and primed as described. Instruments were interchanged by the engineering assistant including hook cautery, Bovie cautery and clip appliers. I had sat at the console. Next attention was brought to the infundibulum and cystic structures. The infundibulum and cystic duct were dissected free from surrounding tissues. The cystic duct was isolated. FIREFLY was used to identify the cystic artery and cystic structures. A critical view of safety was obtained. Large PLASTIC clips were used throughout the entire case. Using a clip bus steward, 2 clips were placed at the junction of the infundibulum and cystic duct. The cystic duct was divided between clips. Next, the cystic artery was similarly clipped and cauterized. Electro-Bovie cautery was used to remove the gallbladder from the hepatic fossa. Hemostasis was checked and found to be adequate. The robot was undocked. I re-scrubbed into the case. Using a 10 mm Endo Catch bag via the left upper quadrant incision, the specimen was removed from the abdominal cavity. All pneumoperitoneum instruments were evacuated from the abdominal cavity. The incisions were reapproximated using 4-0 Monocryl in an interrupted subcuticular fashion. Fascial defects were less than 8 mm in size. Please note along the trocar sites, local anesthetic was placed as a field block prior to insertion of all instruments. Liquid glue was applied to the skin. At the end of the procedure needle, sponge, and instrument count had been verified correct by the surgical oncologist. The patient was transferred to postanesthesia care unit in stable condition. Intraoperative films were shared with the patient's family.
[2021-10-16] MEDS: ACETAMINOPHEN IV (For NPO) 1,000 MG in EMPTY BAG 1 BAG IVPB SCH ×2 (20:04→20:13)
[2021-10-16] MEDS: SIMETHICONE 40 MG/0.6 ML DROPS 2,000 MG/30 ML BOTTLE PO SCH ×2 (20:05→20:15)
[2021-10-16] MEDS: PIPERACILLIN-TAZOBACTAM 3.375 GM in SODIUM CHLORIDE 0.9% 100 ML IVPB SCH (21:17)
[2021-10-16 22:28] VITALS: TEMP 98.1
[2021-10-17] MEDS: KETOROLAC 15 MG/ML 1 ML VIAL IVP SCH ×3 (00:40→11:56)
[2021-10-17] MEDS: PIPERACILLIN-TAZOBACTAM 3.375 GM in SODIUM CHLORIDE 0.9% 100 ML IVPB SCH ×2 (00:41→01:15)
[2021-10-17] MEDS: ACETAMINOPHEN IV (For NPO) 1,000 MG in EMPTY BAG 1 BAG IVPB SCH ×2 (03:08→08:53)
[2021-10-17] MEDS ORDERED: PIPERACILLIN-TAZOBACTAM 3.375 GM in SODIUM CHLORIDE 0.9% 100 ML IVPB SCH (05:00)
[2021-10-17] MEDS: SODIUM CHLORIDE 0.9% 1,000 ML IV SCH (05:43)
[2021-10-17 08:21] VITALS: BP 114/74; PULSE 55; RESP 16
[2021-10-17 08:50] LABS: Basophils # (A) 0.03 X 10*3/uL (0.00-0.10); Basophils % (A) 0.4 %; Eosinophils # (A) 0.01 X 10*3/uL (0.04-0.35); Eosinophils % (A) 0.1 %; HCT 33.2 % (37.2-46.3); HGB 10.9 g/dL (12.0-15.0); Immature Grans, Automated 0.4 %; Lymphocytes # (A) 1.43 X 10*3/uL (0.90-5.00); Lymphocytes % (A) 17.3 %; MCHC 32.8 g/dL (32.0-37.0); MCV 91.5 fL (80.0-97.0); Mean Platelet Volume 10.6 fL (9.5-12.2); Monocytes % (A) 6.1 %; NRBC Per 100 WBC 0 /100 WBCS (0.0-0.0); Neutrophils # (A) 6.25 X 10*3/uL (1.80-7.70); Neutrophils % (A) 75.7 %; Platelet Count 234 X 10*3/uL (140-440); RBC 3.63 X 10*6/uL (4.10-5.20); RDW 12.1 % (11.5-14.5); WBC 8.25 X 10*3/uL (4.50-10.00)
[2021-10-17 08:52] LABS: African American GFR (CKD) 109.9 (60.0-200.0); Albumin 3.6 g/dL (3.8-4.9); Albumin/Globulin Ratio 1.64 (1.60-3.17); Anion Gap 7.9 mmol/L (10.00-18.00); BUN/Creat Ratio 13.5 Ratio (12.00-20.00); Blood Urea Nitrogen 10.8 mg/dL (9.0-27.0); Calcium 8.4 mg/dL (8.7-10.3); Carbon Dioxide 22.1 mmol/L (20.0-27.5); Globulin 2.2 g/dL (1.6-3.3); Non-African American GFR(CKD) 94.8 (60.0-200.0); Potassium 4.2 mmol/L (3.5-5.5); Total Bilirubin 0.3 mg/dL (0.30-1.20); Total Protein 5.8 g/dL (6.2-8.2)
[2021-10-17] MEDS: SIMETHICONE 40 MG/0.6 ML DROPS 2,000 MG/30 ML BOTTLE PO SCH (08:52)
[2021-10-17] MEDS ORDERED: PANTOPRAZOLE 40 MG/10 ML VIAL IVP SCH (09:00)
[2021-10-17] MEDS ORDERED: ENOXAPARIN 30 MG/0.3 ML SYRINGE SQ SCH (09:00)
--- NOTE | 2021-10-17 12:19 | P.DS ---
Providers Date of admission: 10/16/21 13:18 Expected date of discharge: 10/17/21 Attending physician: Aida Muniz Consults: 10/16/21 12:43 Consult Physician Routine Consulting Provider: Ailyn Georges Consult Reason/Comments: GB Do you want consulting provider notified?: Yes Primary care physician: Aida Muniz [facility] Course: HISTORY OF PRESENT ILLNESS This is a 35-year-old female patient with no significant past medical history, history of former smoking. Patient presented to [facility] emergency center for upper abdominal pain and epigastric pain radiating to her back and right shoulder. No fever. She was found to be afebrile, heart rate initially 116, blood pressure 145/83, pulse ox 100%. CBC was unremarkable. Electrolytes and renal function normal. Blood sugar 118. Urine hCG not detected. CAT scan of the abdomen and pelvis without contrast revealed cholelithiasis. A 1.1 cm stone in the gallbladder neck may be impacted. Right upper quadrant ultrasound recommended. Bilateral small ovarian cysts. Gallbladder ultrasound revealed cholelithiasis. Patient is seen in the emergency center waiting for a bed on the [facility] floor, consult with general surgery with plan for surgical intervention this afternoon. 10/17: Yesterday, patient underwent robotic-assisted laparoscopic cholecystectomy and patient has had no postop complications. She has been afebrile, heart rate 51, blood pressure 100/58, pulse ox 97% on room air. Patient has continued on Zosyn, started on Mylicon drops and IV fluids. Patient's been started on regular diet for breakfast and tolerated well. Patient denies any nausea or vomiting, diarrhea. Patient does complain of pain in the right shoulder area, no pain in the right upper quadrant epigastric area.. Repeat blood work reveals WBC 8.2, hemoglobin 10.9, platelet count 234. Electrolytes are within normal limits. Renal function normal. Blood sugar 103. Calcium 8.4. Liver function tests normal. Albumin 3.6. Patient has been seen by Dr. Nesbitt this morning and cleared for discharge. Abdominal incisions 4 show no signs of infection, no drainage. Sites have been glued. Patient will be discharged home in stable condition. DISCHARGE DIAGNOSES 1. Acute cholecystitis with cholelithiasis. 2. GI prophylaxis. 3. DVT prophylaxis. 4. Respiratory prophylaxis. . DISCHARGE PLAN Home Greater than 35 minutes was utilized and coordinating patient's discharge. Impression and plan of care have been directed as dictated by the signing physician. Danielle Cortez nurse practitioner acting as scribe for signing physician. Patient Condition at Discharge: Good Plan - Discharge Summary New Discharge Prescriptions: Continue Calcium Carb/Mag Ox/Zinc Sulf [Aed-Odw-Gyhl 334-134-5 mg Tab] 1 tab PO TID PRN PRN Reason: Muscle Pain Discharge Medication List Calcium Carb/Mag Ox/Zinc Sulf [Ymz-Ypc-Oqwf 334-134-5 mg Tab] 1 tab PO TID PRN 10/16/21 [History] Follow up Appointment(s)/Referral(s): Aida Muniz MD [Primary Care Provider] - 1 Week Discharge Disposition: HOME SELF-CARE
--- NOTE | 2021-10-17 12:27 | P.PN ---
Subjective Progress Note Date: 10/17/21 Patient clinically doing well. Otherwise, discharge instructions review the patient and her family. Telehealth in 1 week. Diet. Restrictions reviewed. Objective - Vital Signs Vital signs: Vital Signs Temp 98.1 F 10/17/21 08:00 Pulse 55 L 10/17/21 08:00 Resp 16 10/17/21 08:00 BP 114/74 10/17/21 08:00 Pulse Ox 99 10/17/21 08:00 FiO2 Intake & Output 10/16/21 10/17/21 10/17/21 18:59 06:59 18:59 Intake Total 500 118 Output Total 5 Balance 495 118 Weight 80.286 kg 80.286 kg Intake: IV 500 Oral 118 Output: Estimated Blood Loss 5 Other: Voiding Method Toilet Toilet # Voids 2 - Labs CBC & Chem 7: 10/17/21 05:13 10/17/21 05:13 Labs: Abnormal Lab Results - Last 24 Hours (Table) 10/17/21 10/17/21 Range/Units 05:13 05:13 RBC 3.63 L (4.10-5.20) X 10*6/uL Hgb 10.9 L (12.0-15.0) g/dL Hct 33.2 L (37.2-46.3) % Eosinophils # 0.01 L (0.04-0.35) X 10*3/uL Anion Gap 7.90 L (10.00-18.00) mmol/L Calcium 8.4 L (8.7-10.3) mg/dL Total Protein 5.8 L (6.2-8.2) g/dL Albumin 3.6 L (3.8-4.9) g/dL
[2021-10-18] MEDS ORDERED: ENOXAPARIN 40 MG/0.4 ML SYRINGE SQ SCH (09:00)
== END 2021-10-17 13:41 | disposition home or self-care (01) ==
LOC: EC 02:11 → 4SSUR 13:18 → 6NMEDSUR 17:31
PROVIDERS: ADMIT Internal Medicine; ATTEND Internal Medicine
DX: K80.10 Calculus of gallbladder with chronic cholecystitis without obstruction (principal); N83.202 Unspecified ovarian cyst, left side; N83.201 Unspecified ovarian cyst, right side; Z87.891 Personal history of nicotine dependence; Z82.49 Family history of ischemic heart disease and other diseases of the circulatory system; Z80.3 Family history of malignant neoplasm of breast; Z80.42 Family history of malignant neoplasm of prostate; Z83.438 Family history of other disorder of lipoprotein metabolism and other lipidemia
CPT/HCPCS: 47563; S2900; 36415; 74176; 76705; 80053; 81003; 81025; 82150; 83690; 85025; 88304; 96361; 96374; 96375; 96376; 99285

== ENCOUNTER → 2022-10-22 | Outpatient (CLI) | payer BC ==
--- NOTE | 2022-10-22 10:17 | MM ---
Reason for Exam: Screening (asymptomatic). Baseline mammogram. Patient History: Menarche at age 10. First Full-Term at age 18. Maternal aunt had breast cancer at or over age 50. Mother had breast cancer at or over age 50. Last menstrual period: 09/27/2022 Risk Values: Adore 5 year model risk: 0.8%. NCI Lifetime model risk: 19.7%. Prior Study Comparison: Patient's first Mammogram. Tissue Density: The breast tissue is heterogeneously dense. This may lower the sensitivity of mammography. Findings: Analyzed By CAD. There is no suspicious group of microcalcifications or new suspicious mass in either breast. Overall Assessment: Negative, BI-RAD 1 Management: Screening Mammogram of both breasts in [address] [facility] will attempt to contact patient to return for supplemental views and ultrasound if indicated. Patient should continue monthly self-breast exams. A clinical breast exam by your physician is recommended on an annual basis. This exam should not preclude additional follow-up of suspicious palpable abnormalities. Note on Adore scores and lifetime risk: 1. A Adore score greater than 3% is considered moderate risk. If this is the case, consider specialist referral to assess eligibility for a risk reducing agent. 2. If overall lifetime risk for the development of breast cancer is 20% or higher, the patient may qualify for future screening with alternating mammogram and breast MRI. Electronically signed and approved by: Julius Larson DO
== END | disposition home or self-care (01) ==
LOC: RADMAMWWP 08:19
PROVIDERS: ATTEND Obstetrics & Gynecology
DX: Z12.31 Encounter for screening mammogram for malignant neoplasm of breast (principal); Z80.3 Family history of malignant neoplasm of breast
CPT/HCPCS: 77063; 77067

== ENCOUNTER → 2023-04-08 | Outpatient (CLI) | payer BC, OTHER ==
--- NOTE | 2023-04-08 12:40 | CA ---
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 LV Systolic Volume MOD 4C 36.2 cm??? LV Ejection Fraction MOD 4C 58.5 % LV Cardiac Index MOD 4C 1699.9 cm???/min???m??? LV Diastolic Length 4C 7.9 cm LV Systolic Length 4C 6.1 cm LV Diastolic Volume MOD 2C 80.5 cm??? LV Systolic Volume MOD 2C 33.7 cm??? LV Ejection Fraction MOD 2C 58.2 % LV Cardiac Index MOD 2C 1559.1 cm???/min???m??? LV Diastolic Length 2C 7.8 cm LV Systolic Length 2C 6.3 cm LA Volume 36.1 cm??? 18 - 58 / 22 - 52 cm??? LA Volume Index 17.7 cm???/m??? 16 - 28 cm???/m??? M-MODE Aortic Root Diameter MM 2.9 cm MV E Point Septal Separation 0.5 cm AV Cusp Separation MM 2.3 cm DOPPLER AV Peak Velocity 144.8 cm/s AV Peak Gradient 8.4 mmHg MV Area PHT 3.2 cm??? Mitral E Point Velocity 97.7 cm/s Mitral A Point Velocity 42.7 cm/s Mitral E to A Ratio 2.3 MV Deceleration Time 240.2 ms MV E' Velocity 16.7 cm/s Mitral E to MV E' Ratio 5.8 TR Peak Velocity 216.4 cm/s TR Peak Gradient 18.7 mmHg Right Ventricular Systolic Press 23.4 mmHg FINDINGS Left Ventricle Left ventricular ejection fraction is estimated at 55-60 %. Left ventricular cavity size normal. Left ventricular cavity size normal. Right Ventricle Normal right ventricular size and function. Right ventricular systolic pressure within normal limits. Right Atrium Normal right atrial size. Left Atrium Normal left atrial size. Mitral Valve Structurally normal mitral valve. No mitral stenosis, regurgitation or prolapse. Aortic Valve Trileaflet aortic valve. No aortic valve stenosis or regurgitation. Tricuspid Valve Structurally normal tricuspid valve. Mild tricuspid regurgitation. Pulmonic Valve Structurally normal pulmonic valve. Trace pulmonic regurgitation. Pericardium No pericardial effusion. Aorta Normal size aortic root and proximal ascending aorta. CONCLUSIONS 1. Normal left ventricular size and systolic function 2. Mild tricuspid regurgitation with normal pulmonary pressure Previewed by: Dr. Alka Randhawa MD (Electronically Signed) Final Date: 08 April 2023 12:39
== END | disposition home or self-care (01) ==
LOC: RADECHMAIN 07:40
PROVIDERS: ATTEND Internal Medicine
DX: R00.2 Palpitations (principal); I36.1 Nonrheumatic tricuspid (valve) insufficiency
CPT/HCPCS: 93270; 93306

== ENCOUNTER 2024-01-09 22:03 | Emergency (ER) | payer BC, OTHER ==
--- NOTE | 2024-01-09 22:28 | ED ---
General Adult HPI - General Chief complaint: Abdominal Pain Stated complaint: ABD Pain Time Seen by Provider: 01/09/24 22:17 Source: patient, EMS Mode of arrival: EMS Limitations: no limitations - History of Present Illness Initial comments: Patient is a previous healthy 38-year-old female presenting today for sudden onset upper quadrant pain. Prior cholecystectomy 2021. States she was sitting at home about 45 minutes prior to start abdominal and had few nonbloody loose stools. Then suddenly had sharp left upper quadrant pain radiating to the midd le of her abdomen. Had associated nonbloody nonbilious emesis. No fevers endorses chills. Denies dysuria, hematuria or transparency. No history of kidney stones. Did state she felt short of breath with the onset of the pain. No chest pain. Does feel lightheaded no dizziness or headache. Feels like her hands and feet are tingling. Has a history of panic attacks. States does not feel a prior panic attacks. Does not think , completed her menstrual cycle. Is sexually active. No vaginal discharge or bleeding. - Related Data Home Medications Medication Instructions Recorded Confirmed Pantoprazole [Protonix] 40 mg PO DAILY 01/18/24 01/18/24 Allergies Allergy/AdvReac Type Severity Reaction Status Date / Time adhesive AdvReac Rash/Hives Verified 01/18/24 17:26 Review of Systems ROS Statement: Those systems with pertinent positive or pertinent negative responses have been documented in the HPI. ROS Other: All systems not noted in ROS Statement are negative. Constitutional: Reports: chills. Denies: fever ENT: Denies: throat pain, congestion Respiratory: Reports: dyspnea. Denies: cough Cardiovascular: Denies: chest pain Gastrointestinal: Reports: abdominal pain, nausea, vomiting, diarrhea. Denies: hematemesis, melena, hematochezia Genitourinary: Denies: urgency, dysuria, hematuria, discharge Past Medical History Past Medical History: No Reported History Additional Past Medical History / Comment(s): STATES OCCASIONAL HEART FLUTTER IF NERVOUS OR STRESSED- HAS NEVER HAD CHECKED OUT. JUST DELIVERED 01/10/15- PT IS HAVING PAIN WITH WISDOM TOOTH LOWER LEFT SIDE History of Any Multi-Drug Resistant Organisms: None Reported Past Surgical History: No Surgical Hx Reported, Cholecystectomy Past Anesthesia/Blood Transfusion Reactions: No Reported Reaction Past Psychological History: No Psychological Hx Reported, Anxiety Smoking Status: Former smoker, Vaper Past Alcohol Use History: None Reported Past Drug Use History: Marijuana - Past Family History Mother Family Medical History: Hypertension General Exam - General Exam Comments Initial Comments: PE: CONSTITUTIONAL: Nontoxic-appearing however painful appearing, curled in the position and tearful SKIN: Warm, dry, no jaundice, hives or petechiae EYES: Pupils are equally round, extraocular movements intact without nystagmus, clear conjunctiva, non-icteric sclera HENT: Normocephalic, atraumatic, moist mucus membranes, oropharynx clear without exudates NECK: , Full range of motion, normal appearance PULMONARY: Clear to auscultation without wheezes, rhonchi, or rales, normal excursion, no accessory muscle use and no stridor CARDIOVASCULAR: Regular rate, rhythm, normal S1 and S2. No appreciated murmurs, rubs or gallops. Strong radial pulses with intact distal perfusion. No lower extremity edema GASTROINTESTINAL: Left CVA tenderness, soft, tenderness palpation of the left upper quadrant, epigastrium and left lower quadrant, guarding with palpation of these regions non-distended, no palpable masses, guarding. No hepatosplenomegaly MUSCULOSKELETAL: Extremities have no gross deformity, no edema, redness, or swelling. No calf swelling ot TTP. NEUROLOGIC:_a/o x 3, GCS 15, normal mentation and speech. Moves all extremities x 4 without motor or sensory deficit PSYCHIATRIC:_normal mood and affect, thought process is clear and linear Limitations: no limitations Course Vital Signs 01/09/24 01/10/24 01/10/24 22:04 01:06 04:25 Temperature 98.5 F 97.7 F 98.4 F Pulse Rate 82 68 84 Respiratory 21 12 18 Rate Blood Pressure 143/71 127/62 110/78 O2 Sat by Pulse 100 Oximetry EKG Findings - EKG Comments: EKG Findings:: Sinus rhythm, rate 76 bpm, MI interval 172 ms, QRS duration 114 ms, QT/QTc 404/434 ms, normal axis, no ST elevations or depressions, no arrhythmia Medical Decision Making - Medical Decision Making Was pt. sent in by a medical professional or institution (, PA, PHARMACY BENEFITS COORDINATOR, urgent care, hospital, or fdc...) When possible be specific @ -No Did you speak to anyone other than the patient for history (EMS, parent, family, police, friend...)? What history was obtained from this source @ -No Did you review nursing and triage notes (agree or disagree)? Why? @ -I reviewed and agree with nursing and triage notes Were old charts reviewed (outside hosp., previous admission, EMS record, old EKG, old radiological studies, urgent care reports/EKG's, fdc records)? Report findings @ -Echocardiogram from 04/10/2023 reviewed, showed normal ejection fraction and left ventricular function with mild tricuspid regurgitation Differential Diagnosis (chest pain, altered mental status, abdominal pain women, abdominal pain men, vaginal bleeding, weakness, fever, dyspnea, syncope, headache, dizziness, GI bleed, back pain, seizure, CVA, palpatations, mental health, musculoskeletal)? @ -Differential Abdominal Pain Women: Appendicitis, diverticulosis, ischemic bowel, pancreatitis, hepatitis, UTI, gastroenteritis, incarcerated hernia, bowel obstruction, constipation, inflammatory bowel, hepatitis, peptic ulcer disease, splenic infarction, perforated viscus, ecopic , ovarian torsion, PID, kidney stone, this is not meant to be an all-inclusive list. Additionally, given shortness of breath with onset of LUQ pain, though pt does not seems to be 2/2 pain, additionally considered PNA, Pneumothorax, pleural effusion, ACS. Very low suspicion for these, given LCTAB, no shortness of breath currently, no CP, however will obtain EKG< CXR and troponin to ensure no evidence of the above. EKG interpreted by me (3pts min.). @ -As above X-rays interpreted by me (1pt min.). @ -No consolidations or cardiomegaly CT interpreted by me (1pt min.). @ No evidence of perforation or obstruction U/S interpreted by me (1pt. min.). @ -None done What testing was considered but not performed or refused? (CT, X-rays, U/S, labs)? Why? @ -None What meds were considered but not given or refused? Why? @Did consider administering morphine however patient politely declined Did you discuss the management of the patient with other professionals (professionals i.e. , PA, PHARMACY BENEFITS COORDINATOR, lab, RT, psych nurse, social sciences lecturer, processing specialist, teacher, promotions officer, immigration case manager)? Give summary @ -No Was smoking cessation discussed for >3mins.? @ -No Was critical care preformed (if so, how long)? @ -No Were there social determinants of health that impacted care today? How? (Homelessness, low income, unemployed, alcoholism, drug addiction, transportation, low edu. Level, literacy, decrease access to med. care, fdc, rehab)? @ -No Was there de-escalation of care discussed even if they declined (Discuss DNR or withdrawal of care, Hospice)? @ -No What co-morbidities impacted this encounter? (DM, HTN, Smoking, COPD, CAD, Cancer, CVA, ARF, Chemo, Hep., AIDS, mental health diagnosis, sleep apnea, morbid obesity)? @ -None Was patient admitted / discharged? Hospital course, mention meds given and route, prescriptions, significant lab abnormalities, going to OR and other pertinent info. @Discharged -Patient is a 38-year-old female past medical history of prior cholecystectomy, anxiety presenting for sudden onset left upper quadrant pain nausea vomiting and diarrhea. On my assessment patient is tearful and painful appearing, laying on her curled on her right side. Vital signs are stable. No tachycardia hypoxia or hypotension. Exam is limited by patient's positioning. Lungs are clear to auscultation bilaterally, skin is pink and well-perfused, normal S1-S2 on cardiac exam without murmur, left upper quadrant, left CVA tenderness, epigastric tenderness to palpation. Active bowel sounds throughout, abdomen is nondistended without peritoneal signs. Differential diagnoses above. Plan for chest x-ray, EKG, troponin, CBC, CMP, urinalysis, lipase, amylase, ultrasound pelvis, CT Abdo pelvis and chest x-ray. Patient politely declined narcotics at this point so we will use Tylenol and Toradol as well as Ativan as patient states she does feel very anxious. IV fluids ordered. CT negative process to explain patient's symptoms,ultrasound did show a cluster of cysts in the left ovary with blood flow to the bilateral ovaries present, ultrasound negative for acute process. Lab significant for no leukocytosis, CMP unremarkable, lactic 3, lipase 859, no signs of pancreatits on CT. LFTs wnl. troponin x 2 within normal limits. On reassessment patient endorses resolution of pain. Discussed plan for discharge home and the importance of close follow up. Discussed ovarian cysts noted on imaging and signs and symptoms to monitor for that would indicate ovarian torsion, as well as signs and symptoms warranting return to the ED. Patient comfortable discharge at this point. In my medical judgment there is currently no evidence of an immediate life- threatening or surgical condition. Discharge is therefore indicated at this time. Discharge treatment instructions, follow up instructions, and appropriate emergency department return precautions were discussed with the patient and/or medical decision maker. Patient and/or medical decision maker expressed understanding of and agreed with the treatment plan, follow up instructions, and emergency department return precaution. All patient's and/or medical decision maker's questions were answered. The patient was advised that a small risk still exists that a serious condition could develop and was therefore instructed to return to the ED for any changes in symptoms, persistent symptoms, inability to obtain proper follow-up or for any further concerns. Patient received verbal and written instructions for this condition. Undiagnosed new problem with uncertain prognosis? @ -No Drug Therapy requiring intensive monitoring for toxicity (Heparin, Nitro, Insulin, Cardizem)? @ -No Were any procedures done? @ -No Diagnosis/symptom? @ Ovarian cyst, abdominal pain Acute, or Chronic, or Acute on Chronic? @Acute Uncomplicated (without systemic symptoms) or Complicated (systemic symptoms)? @ complicated Side effects of treatment? @ -No Exacerbation, Progression, or Severe Exacerbation? @ -No Poses a threat to life or bodily function? How? (Chest pain, [place], HI, pneumonia, PE, COPD, DKA, ARF, appy, cholecystitis, CVA, Diverticulitis, Homicidal, [place] icidal, threat to staff... and all critical care pts) @ -Unlikely - Lab Data Result diagrams: 01/09/24 22:27 01/09/24 22:27 Lab Results 01/09/24 01/09/24 01/09/24 Range/Units 22:27 22: 22: WBC 7.7 (3.8-10.6) k/uL RBC 4.36 (3.80-5.40) m/uL Hgb 13.5 (11.4-16.0) gm/dL Hct 38.6 (34.0-46.0) % MCV 88.6 (80.0-100.0) fL MCH 31.0 (25.0-35.0) pg MCHC 35.0 (31.0-37.0) g/dL RDW 12.5 (11.5-15.5) % Plt Count 316 (150-450) k/uL MPV 7.8 Neutrophils % 55 % Lymphocytes % 33 % Monocytes % 4 % Eosinophils % 6 % Basophils % 0 % Neutrophils # 4.2 (1.3-7.7) k/uL Lymphocytes # 2.5 (1.0-4.8) k/uL Monocytes # 0.3 (0-1.0) k/uL Eosinophils # 0.5 (0-0.7) k/uL Basophils # 0.0 (0-0.2) k/uL PT 10.4 (10.0-12.5) sec INR 0.9 (<1.2) APTT 24.3 (22.0-30.0) sec Sodium 139 (137-145) mmol/L Potassium 3.7 (3.5-5.1) mmol/L Chloride 109 H (98-107) mmol/L Carbon Dioxide 19 L (22-30) mmol/L Anion Gap 11 mmol/L BUN 10 (7-17) mg/dL Creatinine 0.74 (0.52-1.04) mg/dL Est GFR (CKD-EPI)AfAm >90 (>60 ml/min/1.73 sqM) Est GFR (CKD-EPI)NonAf >90 (>60 ml/min/1.73 sqM) Glucose 88 (74-99) mg/dL Lactic Ac Sepsis Rflx Plasma Lactic Acid Favian (0.7-2.0) mmol/L Calcium 9.2 (8.4-10.2) mg/dL Total Bilirubin 0.3 (0.2-1.3) mg/dL AST 19 (14-36) U/L ALT 12 (4-34) U/L Alkaline Phosphatase 67 (38-126) U/L Troponin I (0.000-0.034) ng/mL Total Protein 6.8 (6.3-8.2) g/dL Albumin 4.1 (3.5-5.0) g/dL Amylase 106 (30-110) U/L Lipase 859 H (23-300) U/L HCG, Quant <2.4 mIU/mL Urine Color Urine Appearance (Clear) Urine pH (5.0-8.0) Ur Specific Ericson (1.001-1.035) Urine Protein (Negative) Urine Glucose (UA) (Negative) Urine Ketones (Negative) Urine Blood (Negative) Urine Nitrite (Negative) Urine Bilirubin (Negative) Urine Urobilinogen (<2.0) mg/dL Ur Leukocyte Esterase (Negative) Blood Type Blood Type Recheck Bld Type Recheck Status Antibody Screen Spec Expiration Date 01/09/24 01/09/24 01/09/24 Range/Units 22:27 22:27 23:25 WBC (3.8-10.6) k/uL RBC (3.80-5.40) m/uL Hgb (11.4-16.0) gm/dL Hct (34.0-46.0) % MCV (80.0-100.0) fL MCH (25.0-35.0) pg MCHC (31.0-37.0) g/dL RDW (11.5-15.5) % Plt Count (150-450) k/uL MPV Neutrophils % % Lymphocytes % % Monocytes % % Eosinophils % % Basophils % % Neutrophils # (1.3-7.7) k/uL Lymphocytes # (1.0-4.8) k/uL Monocytes # (0-1.0) k/uL Eosinophils # (0-0.7) k/uL Basophils # (0-0.2) k/uL PT (10.0-12.5) sec INR (<1.2) APTT (22.0-30.0) sec Sodium (137-145) mmol/L Potassium (3.5-5.1) mmol/L Chloride (98-107) mmol/L Carbon Dioxide (22-30) mmol/L Anion Gap mmol/L BUN (7-17) mg/dL Creatinine (0.52-1.04) mg/dL Est GFR (CKD-EPI)AfAm (>60 ml/min/1.73 sqM) Est GFR (CKD-EPI)NonAf (>60 ml/min/1.73 sqM) Glucose (74-99) mg/dL Lactic Ac Sepsis Rflx Plasma Lactic Acid Favian 3.0 H* (0.7-2.0) mmol/L Calcium (8.4-10.2) mg/dL Total Bilirubin (0.2-1.3) mg/dL AST (14-36) U/L ALT (4-34) U/L Alkaline Phosphatase (38-126) U/L Troponin I <0.012 (0.000-0.034) ng/mL Total Protein (6.3-8.2) g/dL Albumin (3.5-5.0) g/dL Amylase (30-110) U/L Lipase (23-300) U/L HCG, Quant mIU/mL Urine Color Urine Appearance (Clear) Urine pH (5.0-8.0) Ur Specific Ericson (1.001-1.035) Urine Protein (Negative) Urine Glucose (UA) (Negative) Urine Ketones (Negative) Urine Blood (Negative) Urine Nitrite (Negative) Urine Bilirubin (Negative) Urine Urobilinogen (<2.0) mg/dL Ur Leukocyte Esterase (Negative) Blood Type O Negative Blood Type Recheck O Neg Bld Type Recheck Status No Antibody Screen NEGATIVE Spec Expiration Date 01/12/2024232401/09/24 01/10/24 01/10/24 Range/Units 23:57 01:00 02:04 WBC (3.8-10.6) k/uL RBC (3.80-5.40) m/uL Hgb (11.4-16.0) gm/dL Hct (34.0-46.0) % MCV (80.0-100.0) fL MCH (25.0-35.0) pg MCHC (31.0-37.0) g/dL RDW (11.5-15.5) % Plt Count (150-450) k/uL MPV Neutrophils % % Lymphocytes % % Monocytes % % Eosinophils % % Basophils % % Neutrophils # (1.3-7.7) k/uL Lymphocytes # (1.0-4.8) k/uL Monocytes # (0-1.0) k/uL Eosinophils # (0-0.7) k/uL Basophils # (0-0.2) k/uL PT (10.0-12.5) sec INR (<1.2) APTT (22.0-30.0) sec Sodium (137-145) mmol/L Potassium (3.5-5.1) mmol/L Chloride (98-107) mmol/L Carbon Dioxide (22-30) mmol/L Anion Gap mmol/L BUN (7-17) mg/dL Creatinine (0.52-1.04) mg/dL Est GFR (CKD-EPI)AfAm (>60 ml/min/1.73 sqM) Est GFR (CKD-EPI)NonAf (>60 ml/min/1.73 sqM) Glucose (74-99) mg/dL Lactic Ac Sepsis Rflx Y Plasma Lactic Acid Favian (0.7-2.0) mmol/L Calcium (8.4-10.2) mg/dL Total Bilirubin (0.2-1.3) mg/dL AST (14-36) U/L ALT (4-34) U/L Alkaline Phosphatase (38-126) U/L Troponin I <0.012 (0.000-0.034) ng/mL Total Protein (6.3-8.2) g/dL Albumin (3.5-5.0) g/dL Amylase (30-110) U/L Lipase (23-300) U/L HCG, Quant mIU/mL Urine Color Light Yellow Urine Appearance Clear (Clear) Urine pH 6.5 (5.0-8.0) Ur Specific Ericson 1.045 H (1.001-1.035) Urine Protein Negative (Negative) Urine Glucose (UA) Negative (Negative) Urine Ketones Negative (Negative) Urine Blood Negative (Negative) Urine Nitrite Negative (Negative) Urine Bilirubin Negative (Negative) Urine Urobilinogen <2.0 (<2.0) mg/dL Ur Leukocyte Esterase Negative (Negative) Blood Type Blood Type Recheck Bld Type Recheck Status Antibody Screen Spec Expiration Date Disposition Clinical Impression: Ovarian cyst, Abdominal pain Disposition: HOME SELF-CARE Condition: Good Additional Instructions: Every disease is a spectrum and a small chance still exists that a serious condition could develop, for this reason, please monitor yourself closely for new, changing or worsening symptoms, no symptoms, pain that does not resolve in 48 hours, fever, inability to tolerate/keep down fluids or your medications, inability to follow up with outpatient providers as instructed and should you experience these symptoms or should you have any further concerns for your wellbeing please return to the ED or call 911 immediately. PLEASE call your primary care physician as soon as possible to arrange / discuss plan for followup appointment. Appointment in the next 1-3 days is strongly e ncouraged if possible. PLEASE let us know here before you leave if there is anything further we can do to be of any assistance. Take care and feel Better! Is patient prescribed a controlled substance at d/c from ED?: No Referrals: Aida Muniz MD [Primary Care Provider] - 1-2 days
[2024-01-09] MEDS: ONDANSETRON 4 MG/2 ML VIAL IVP STA (22:36)
[2024-01-09] MEDS: LORazepam 2 MG/ML INJ IV STA (22:37)
[2024-01-09] MEDS: KETOROLAC 15 MG/ML 1 ML VIAL IVP STA (22:37)
[2024-01-09] MEDS: ACETAMINOPHEN IV (For NPO) 1,000 MG in EMPTY BAG 1 BAG IVPB STA (22:44)
[2024-01-09] MEDS: SODIUM CHLORIDE 0.9% 1,000 ML IV STA (22:45)
[2024-01-09 23:08] LABS: Basophils % (A) 0 %; Eosinophils # (A) 0.5 k/uL (0-0.7); Eosinophils % (A) 6 %; HCT 38.6 % (34.0-46.0); HGB 13.5 gm/dL (11.4-16.0); Lymphocytes # (A) 2.5 k/uL (1.0-4.8); Lymphocytes % (A) 33 %; MCV 88.6 fL (80.0-100.0); Mean Platelet Volume 7.8; Monocytes # (A) 0.3 k/uL (0-1.0); Monocytes % (A) 4 %; Neutrophils # (A) 4.2 k/uL (1.3-7.7); Neutrophils % (A) 55 %; Platelet Count 316 k/uL (150-450); RBC 4.36 m/uL (3.80-5.40); RDW 12.5 % (11.5-15.5); WBC 7.7 k/uL (3.8-10.6)
[2024-01-09 23:24] LABS: INR 0.9 (<1.2)
[2024-01-09 23:25] LABS: Partial Thromboplastin Time 24.3 sec (22.0-30.0); Prothrombin Time 10.4 sec (10.0-12.5)
[2024-01-09 23:40] LABS: HCG,Quantitative Serum <2.4 mIU/mL
--- NOTE | 2024-01-10 00:29 | US ---
EXAMINATION TYPE: US pelvic complete DATE OF EXAM: 01/10/2024 COMPARISON: NONE CLINICAL INDICATION: Female, 38 years old with history of Sudden onset LUQ pain, torsion; no pelvic p ain, only LUQ pain, h/o ov cysts TECHNIQUE: TA. Transabdominal sonographic images of the pelvis were acquired. Date of LMP: 01/01/2024 EXAM MEASUREMENTS: Uterus: 9.5 x 6.7 x 4.7cm Endometrial Stripe: 0.9cm Right Ovary: 3.3 x 3.0 x 2.2cm Left Ovary: 3.7 x 4.3 x 2.5cm 1. Uterus: Anteverted wnl 2. Endometrium: wnl 3. Right Ovary: wnl 4. Left Ovary: cluster of cysts = 2.5 x 2.9 x 2.6cm Spectral, color and waveform doppler imaging shows good arterial and venous flow within the ovaries ; 5. Bilateral Adnexa: wnl 6. Posterior cul-de-sac: wnl IMPRESSION: Satisfactory blood flow to both ovaries. [facility], , 01/10/2024 12:27 AM
--- NOTE | 2024-01-10 00:37 | XR ---
EXAMINATION TYPE: XR chest 2V DATE OF EXAM: 01/10/2024 COMPARISON: NONE HISTORY: Difficulty in breathing. TECHNIQUE: Frontal and lateral views of the chest are obtained. FINDINGS: Overlying EKG leads and bra strap noted. There is no focal air space opacity, pleural effus ion, or pneumothorax seen. The cardiac silhouette size is within normal limits. The osseous struct ures are intact. IMPRESSION: No acute cardiopulmonary process. [facility], , 01/10/2024 12:34 AM
[2024-01-10 00:57] LABS: ALT 12 U/L (4-34); AST 19 U/L (14-36); African American GFR (CKD) >90 (>60 ml/min/1.73 sqM); Albumin 4.1 g/dL (3.5-5.0); Alkaline Phosphatase 67 U/L (38-126); Amylase 106 U/L (30-110); Anion Gap 11 mmol/L; Blood Urea Nitrogen 10 mg/dL (7-17); Calcium 9.2 mg/dL (8.4-10.2); Carbon Dioxide 19 mmol/L (22-30); Chloride 109 mmol/L (98-107); Glucose 88 mg/dL (74-99); Lipase 859 U/L (23-300); Non-African American GFR(CKD) >90 (>60 ml/min/1.73 sqM); Potassium 3.7 mmol/L (3.5-5.1); Sodium 139 mmol/L (137-145); Total Bilirubin 0.3 mg/dL (0.2-1.3); Total Protein 6.8 g/dL (6.3-8.2)
--- NOTE | 2024-01-10 01:09 | CT ---
EXAMINATION TYPE: CT abdomen pelvis w con DATE OF EXAM: 01/10/2024 HISTORY: Abdominal pain x 1 hour, states it started in the upper left quadrant. Patient describes the pain as sharp and stabby. CT DLP: 1106.2mGycm Automated Exposure Control for Dose Reduction was Utilized. CONTRAST: CT scan of the abdomen and pelvis is performed with IV Contrast, patient injected with 100 mL of Isov ue 300. COMPARISON: CT October 16, 2021 FINDINGS: LUNG BASES: No significant abnormality is appreciated. LIVER/GB: Gallbladder is presumed surgically absent. PANCREAS: No significant abnormality is seen. SPLEEN: No significant abnormality is seen. ADRENALS: No significant abnormality is seen. KIDNEYS: No significant abnormality is seen. BOWEL: No abnormal small or large bowel dilatation. UTERUS/ADNEXA: Anteverted uterus. There is 2.8 cm thin-walled cyst or cystic lesion in the left ovary axial image 69. LYMPH NODES: No greater than 1cm abdominal or pelvic lymph nodes are appreciated. OSSEOUS STRUCTURES: Slight scoliotic curvature. OTHER: No significant additional abnormality is seen. IMPRESSION: No bowel obstruction. No significant acute finding is seen to account for patient's clini shila symptoms. [facility], , 01/10/2024 1:07 AM
[2024-01-10 01:18] LABS: Appearance,Urine Clear (Clear); Bilirubin,Urine Negative (Negative); Blood,Urine Negative (Negative); Color,Urine Light Yellow; Glucose,Urine (UA) Negative (Negative); Ketones,Urine Negative (Negative); Leukocyte Esterase,Urine Negative (Negative); Nitrite,Urine Negative (Negative); PH, Urine 6.5 (5.0-8.0); Protein,Urine Negative (Negative); Specific Gravity,Urine 1.045 (1.001-1.035); Urobilinogen,Urine <2.0 mg/dL (<2.0)
[2024-01-10 04:51] VITALS: BP 110/78; PULSE 84; RESP 18; TEMP 98.4
== END 2024-01-10 04:51 | disposition home or self-care (01) ==
LOC: EC 22:03
DX: N83.209 Unspecified ovarian cyst, unspecified side (principal)
CPT/HCPCS: 36415; 71046; 74177; 76856; 80053; 81003; 82150; 83605; 83690; 84484; 84702; 85025; 85610; 85730; 86850; 86900; 86901; 93005; 93975; 99283

== ENCOUNTER 2024-01-18 13:10 | Emergency (ER) | payer MEDICAID, OTHER ==
[2024-01-18 13:14] VITALS: TEMP 98
--- NOTE | 2024-01-18 13:35 | ED ---
Abdominal Pain HPI - General Chief Complaint: Abdominal Pain Stated Complaint: abd pain Time Seen by Provider: 01/18/24 13:29 Source: patient, RN notes reviewed Mode of arrival: ambulatory Limitations: no limitations - History of Present Illness Initial Comments: This is a 38-year-old female presents the emergency department for chief complaint of mid abdominal epigastric pain that started this morning around 1145. Patient states that this pain is the same as when she reported the emergency department on 01/09/2024. She was informed that this pain was most likely secondary to her ovarian cysts. Patient endorses nausea with vomiting as well. States that she has been having issues with constipation. Previous surgical abdominal history of cholecystectomy in 2021. Denies urinary symptoms. She denies drug or alcohol use. - Related Data Home Medications Medication Instructions Recorded Confirmed Pantoprazole [Protonix] 40 mg PO DAILY 01/18/24 01/18/24 Allergies Allergy/AdvReac Type Severity Reaction Status Date / Time adhesive AdvReac Rash/Hives Verified 01/18/24 17:26 Review of Systems ROS Statement: Those systems with pertinent positive or pertinent negative responses have been documented in the HPI. ROS Other: All systems not noted in ROS Statement are negative. Past Medical History Past Medical History: No Reported History Additional Past Medical History / Comment(s): STATES OCCASIONAL HEART FLUTTER IF NERVOUS OR STRESSED- HAS NEVER HAD CHECKED OUT. JUST DELIVERED 01/10/15- PT IS HAVING PAIN WITH WISDOM TOOTH LOWER LEFT SIDE History of Any Multi-Drug Resistant Organisms: None Reported Past Surgical History: No Surgical Hx Reported, Cholecystectomy Past Anesthesia/Blood Transfusion Reactions: No Reported Reaction Past Psychological History: No Psychological Hx Reported, Anxiety Smoking Status: Former smoker, Vaper Past Alcohol Use History: None Reported Past Drug Use History: Marijuana - Past Family History Mother Family Medical History: Hypertension General Exam - General Exam Comments Initial Comments: Visual Physical Exam Vital signs reviewed General: Well-appearing, nontoxic, no acute distress. Head: Normocephalic, atraumatic Eyes: PERRLA, EOMI ENT: Airway patent Chest: Nonlabored breathing Skin: No visual rash, normal skin tone Neuro: Alert and oriented 3 Musculoskeletal: No gross abnormalities Limitations: no limitations General appearance: alert, in no apparent distress ENT exam: Present: normal exam, mucous membranes moist Neck exam: Present: normal inspection. Absent: tenderness, meningismus, lymphadenopathy Respiratory exam: Present: normal lung sounds bilaterally. Absent: respiratory distress, wheezes, rales, rhonchi, stridor Cardiovascular Exam: Present: regular rate, normal rhythm, normal heart sounds. Absent: systolic murmur, diastolic murmur, rubs, gallop, clicks GI/Abdominal exam: Present: soft, tenderness (mid abdomen, epigastric), normal bowel sounds. Absent: distended, guarding, rebound, rigid Extremities exam: Present: normal inspection, full ROM, normal capillary refill. Absent: tenderness, pedal edema, joint swelling, calf tenderness Back exam: Present: normal inspection Skin exam: Present: warm, dry, intact, normal color. Absent: rash Course Vital Signs 01/18/24 13:12 Temperature 98.0 F Pulse Rate 77 Respiratory 16 Rate Blood Pressure 135/95 O2 Sat by Pulse 98 Oximetry Medical Decision Making - Medical Decision Making Was pt. sent in by a medical professional or institution (, PA, COMPUTING SYSTEMS MECHANIC, urgent care, hospital, or skilled nursing...) When possible be specific @ -No Did you speak to anyone other than the patient for history (EMS, parent, family, police, friend...)? What history was obtained from this source @ -No Did you review nursing and triage notes (agree or disagree)? Why? @ -I reviewed and agree with nursing and triage notes Were old charts reviewed (outside hosp., previous admission, EMS record, old EKG, old radiological studies, urgent care reports/EKG's, skilled nursing records)? Report findings @ -CT of the abdomen pelvis with IV contrast on 01/10/2024 reveals no signs of bowel obstruction with no significant findings accounting for the patient's clinical symptoms with a 2.8 cm thin-walled cystic lesion in the left ovary Previous emergency department visit from 01/09/2024 revealed a amylase of 106 and a lipase of 859. Differential Diagnosis (chest pain, altered mental status, abdominal pain women, abdominal pain men, vaginal bleeding, weakness, fever, dyspnea, syncope, headache, dizziness, GI bleed, back pain, seizure, CVA, palpatations, mental health, musculoskeletal)? @ -Differential Abdominal Pain Women: Appendicitis, Cholecystitis, diverticulosis, ischemic bowel, pancreatitis, hepatitis, UTI, gastroenteritis, AAA, incarcerated hernia, bowel obstruction, constipation, inflammatory bowel, hepatitis, peptic ulcer disease, splenic infarction, perforated viscus, vulvitis, ovarian torsion, PID, kidney stone, placenta abruption, this is not meant to be an all-inclusive list EKG interpreted by me (3pts min.). @ -none X-rays interpreted by me (1pt min.). @ -None done CT interpreted by me (1pt min.). @ -CT abdomen and pelvis with contrast reveals bilateral ovarian cysts with sigmoid diverticulosis without diverticulitis, essentially benign CT U/S interpreted by me (1pt. min.). @ -US of the abdomen unremarkable What testing was considered but not performed or refused? (CT, X-rays, U/S, labs)? Why? @ -None What meds were considered but not given or refused? Why? @ -None Did you discuss the management of the patient with other professionals (professionals i.e. , PA, COMPUTING SYSTEMS MECHANIC, lab, RT, psych nurse, social worker health services, rod buster helper, teacher, police officer, heel caser)? Give summary @ -No Was smoking cessation discussed for >3mins.? @ -No Was critical care preformed (if so, how long)? @ -No Were there social determinants of health that impacted care today? How? (Homelessness, low income, unemployed, alcoholism, drug addiction, transportation, low edu. Level, literacy, decrease access to med. care, half-way, rehab)? @ -No Was there de-escalation of care discussed even if they declined (Discuss DNR or withdrawal of care, Hospice)? DNR status @ -No What co-morbidities impacted this encounter? (DM, HTN, Smoking, COPD, CAD, Cancer, CVA, ARF, Chemo, Hep., AIDS, mental health diagnosis, sleep apnea, morbid obesity)? @ -None Was patient admitted / discharged? Hospital course, mention meds given and route, prescriptions, significant lab abnormalities, going to OR and other pertinent info. @ - discharge. 38-year-old female with abdominal pain. Patient's vitals are stable upon arrival. On my examination she is laying on her side in the position and complaining of mid abdominal pain with no radiation. States that she feels nauseous. She will be symptomatically treated with antiemetics and analgesics pending laboratory results and CT imaging. She is agree with this plan. CBC reveals mild leukocytosis of 12.3, neutrophils at 10.1 which is likely reactive secondary to episodes of emesis. amylase elevated 134, lipase 844. Urinalysis negative for signs of infection, hCG negative. Just on the abdomen negative for acute process. Patient was provided with laboratory and imaging results and discharged home in stable condition. Recommend that she continue to follow a clear liquid diet over the next 24 hours and slowly reintroduce foods that are low-carb and low-fat to help with pancreatic pain. Recommend that she follow-up with her primary care provider within the next week for further evaluation and for ordering of additional imaging. All questions answered at bedside answered return prior discussed with the patient she is verbalized understanding. Case discussed with Dr. Royal Undiagnosed new problem with uncertain prognosis? @ -No Drug Therapy requiring intensive monitoring for toxicity (Heparin, Nitro, Insulin, Cardizem)? @ -No Were any procedures done? @ -No Diagnosis/symptom? @ -pancreatitis, abdominal pain Acute, or Chronic, or Acute on Chronic? @ -Acute Uncomplicated (without systemic symptoms) or Complicated (systemic symptoms)? @ -Uncomplicated Side effects of treatment? @ -No Exacerbation, Progression, or Severe Exacerbation? @ -No Poses a threat to life or bodily function? How? (Chest pain, [place], [place], pneumonia, PE, COPD, DKA, ARF, appy, cholecystitis, CVA, Diverticulitis, Homicidal, Suicidal, threat to staff... and all critical care pts) @ -No - Lab Data Result diagrams: 01/18/24 15:15 01/18/24 15:15 Lab Results 01/18/24 01/18/24 01/18/24 Range/Units 13:14 13:14 15:15 WBC 12.3 H (3.8-10.6) k/uL RBC 4.34 (3.80-5.40) m/uL Hgb 13.3 (11.4-16.0) gm/dL Hct 39.0 (34.0-46.0) % MCV 90.0 (80.0-100.0) fL MCH 30.7 (25.0-35.0) pg MCHC 34.1 (31.0-37.0) g/dL RDW 12.1 (11.5-15.5) % Plt Count 321 (150-450) k/uL MPV 7.0 Neutrophils % 82 % Lymphocytes % 12 % Monocytes % 2 % Eosinophils % 3 % Basophils % 0 % Neutrophils # 10.1 H (1.3-7.7) k/uL Lymphocytes # 1.5 (1.0-4.8) k/uL Monocytes # 0.3 (0-1.0) k/uL Eosinophils # 0.3 (0-0.7) k/uL Basophils # 0.0 (0-0.2) k/uL Sodium (137-145) mmol/L Potassium (3.5-5.1) mmol/L Chloride (98-107) mmol/L Carbon Dioxide (22-30) mmol/L Anion Gap mmol/L BUN (7-17) mg/dL Creatinine (0.52-1.04) mg/dL Est GFR (CKD-EPI)AfAm (>60 ml/min/1.73 sqM) Est GFR (CKD-EPI)NonAf (>60 ml/min/1.73 sqM) Glucose (74-99) mg/dL Plasma Lactic Acid Favian (0.7-2.0) mmol/L Calcium (8.4-10.2) mg/dL Total Bilirubin (0.2-1.3) mg/dL AST (14-36) U/L ALT (4-34) U/L Alkaline Phosphatase (38-126) U/L Total Protein (6.3-8.2) g/dL Albumin (3.5-5.0) g/dL Amylase (30-110) U/L Lipase (23-300) U/L Urine Color Yellow Urine Appearance Clear (Clear) Urine pH 8.0 (5.0-8.0) Ur Specific [place] 1.025 (1.001-1.035) Urine Protein Trace H (Negative) Urine Glucose (UA) Negative (Negative) Urine Ketones 1+ H (Negative) Urine Blood Negative (Negative) Urine Nitrite Negative (Negative) Urine Bilirubin Negative (Negative) Urine Urobilinogen <2.0 (<2.0) mg/dL Ur Leukocyte Esterase Negative (Negative) Urine HCG, Qual Not Detected (Not Detectd) 01/18/24 01/18/24 Range/Units 15:15 15:15 WBC (3.8-10.6) k/uL RBC (3.80-5.40) m/uL Hgb (11.4-16.0) gm/dL Hct (34.0-46.0) % MCV (80.0-100.0) fL MCH (25.0-35.0) pg MCHC (31.0-37.0) g/dL RDW (11.5-15.5) % Plt Count (150-450) k/uL MPV Neutrophils % % Lymphocytes % % Monocytes % % Eosinophils % % Basophils % % Neutrophils # (1.3-7.7) k/uL Lymphocytes # (1.0-4.8) k/uL Monocytes # (0-1.0) k/uL Eosinophils # (0-0.7) k/uL Basophils # (0-0.2) k/uL Sodium 138 (137-145) mmol/L Potassium 4.0 (3.5-5.1) mmol/L Chloride 108 H (98-107) mmol/L Carbon Dioxide 21 L (22-30) mmol/L Anion Gap 9 mmol/L BUN 10 (7-17) mg/dL Creatinine 0.74 (0.52-1.04) mg/dL Est GFR (CKD-EPI)AfAm >90 (>60 ml/min/1.73 sqM) Est GFR (CKD-EPI)NonAf >90 (>60 ml/min/1.73 sqM) Glucose 89 (74-99) mg/dL Plasma Lactic Acid Favian 0.9 (0.7-2.0) mmol/L Calcium 9.2 (8.4-10.2) mg/dL Total Bilirubin 0.6 (0.2-1.3) mg/dL AST 18 (14-36) U/L ALT 13 (4-34) U/L Alkaline Phosphatase 79 (38-126) U/L Total Protein 7.0 (6.3-8.2) g/dL Albumin 4.3 (3.5-5.0) g/dL Amylase 134 H (30-110) U/L Lipase 844 H (23-300) U/L Urine Color Urine Appearance (Clear) Urine pH (5.0-8.0) Ur Specific [place] (1.001-1.035) Urine Protein (Negative) Urine Glucose (UA) (Negative) Urine Ketones (Negative) Urine Blood (Negative) Urine Nitrite (Negative) Urine Bilirubin (Negative) Urine Urobilinogen (<2.0) mg/dL Ur Leukocyte Esterase (Negative) Urine HCG, Qual (Not Detectd) Disposition Clinical Impression: Pancreatitis, Abdominal pain Disposition: HOME SELF-CARE Condition: Stable Instructions (If sedation given, give patient instructions): Pancreatitis (ED), Abdominal Pain (ED) Additional Instructions: Please return to the Emergency Department if symptoms worsen or any other concerns. Recommend that you continue to follow-up outpatient with your primary care provider for further evaluation. Is patient prescribed a controlled substance at d/c from ED?: No Referrals: Aida Muniz MD [Primary Care Provider] - 1-2 days Time of Disposition: 19:37
[2024-01-18] MEDS: ONDANSETRON 4 MG/2 ML VIAL IVP STA ×2 (15:19→18:16)
[2024-01-18] MEDS: PANTOPRAZOLE 40 MG/10 ML VIAL IVP STA (15:20)
[2024-01-18] MEDS: MORPHINE SULFATE 4 MG/ML SYRINGE IVP STA (15:20)
[2024-01-18 15:22] LABS: Basophils % (A) 0 %; Eosinophils # (A) 0.3 k/uL (0-0.7); Eosinophils % (A) 3 %; HGB 13.3 gm/dL (11.4-16.0); Lymphocytes # (A) 1.5 k/uL (1.0-4.8); Lymphocytes % (A) 12 %; MCH 30.7 pg (25.0-35.0); MCHC 34.1 g/dL (31.0-37.0); Monocytes # (A) 0.3 k/uL (0-1.0); Monocytes % (A) 2 %; Neutrophils # (A) 10.1 k/uL (1.3-7.7); Neutrophils % (A) 82 %; Platelet Count 321 k/uL (150-450); RBC 4.34 m/uL (3.80-5.40); RDW 12.1 % (11.5-15.5); WBC 12.3 k/uL (3.8-10.6)
[2024-01-18 15:56] LABS: ALT 13 U/L (4-34); AST 18 U/L (14-36); African American GFR (CKD) >90 (>60 ml/min/1.73 sqM); Albumin 4.3 g/dL (3.5-5.0); Alkaline Phosphatase 79 U/L (38-126); Amylase 134 U/L (30-110); Anion Gap 9 mmol/L; Blood Urea Nitrogen 10 mg/dL (7-17); Calcium 9.2 mg/dL (8.4-10.2); Carbon Dioxide 21 mmol/L (22-30); Chloride 108 mmol/L (98-107); Glucose 89 mg/dL (74-99); Lipase 844 U/L (23-300); Non-African American GFR(CKD) >90 (>60 ml/min/1.73 sqM); Sodium 138 mmol/L (137-145); Total Bilirubin 0.6 mg/dL (0.2-1.3)
[2024-01-18 16:19] LABS: Appearance,Urine Clear (Clear); Bilirubin,Urine Negative (Negative); Blood,Urine Negative (Negative); Color,Urine Yellow; Glucose,Urine (UA) Negative (Negative); Ketones,Urine 1+ (Negative); Leukocyte Esterase,Urine Negative (Negative); Nitrite,Urine Negative (Negative); Protein,Urine Trace (Negative); Specific Gravity,Urine 1.025 (1.001-1.035); Urobilinogen,Urine <2.0 mg/dL (<2.0)
--- NOTE | 2024-01-18 17:38 | CT ---
EXAMINATION TYPE: CT abdomen pelvis w con DATE OF EXAM: 01/18/2024 COMPARISON: 01/10/2024 INDICATION: abdominal pain DLP: 964.1 mGycm, Automated exposure control for dose reduction was used. CONTRAST: 100 ml mL of Isovue 370. Study performed without Oral Contrast TECHNIQUE: Axial images were obtained from above the diaphragm to the pubic rami in the axial plane a t 5 mm thick sections. Reconstructed images are reviewed on the computer in the coronal plane. FINDINGS: Limited CT sections are obtained the lung bases. The lung bases are clear. CT ABDOMEN: Liver: Normal Spleen: Normal Pancreas: Normal Adrenal glands: The adrenal glands are normal. Gallbladder: Not visualized. Kidneys: No masses are evident. No hydronephrosis is present. No cysts are present. Delayed images were obtained through the kidneys, which remain unremarkable. Aorta: Normal Inferior vena cava: Normal. CT PELVIS: Loops of bowel within the abdomen and pelvis are normal. A few scattered diverticuli within the sigmo id colon. This study is without oral contrast limits bowel evaluation. Appendix: Normal as visualized. Urinary bladder: Decompressed limiting its evaluation Genitourinary structures: Uterus is unremarkable. Bilateral adnexa have cysts measuring 2.3 cm on lef t and 1.7 cm on the right Osseous structures: No suspicious lytic or sclerotic lesions. IMPRESSION: 1. Bilateral ovarian cysts. 2. Sigmoid diverticulosis without acute diverticulitis [facility], Workstation: [facility], 01/18/2024 5:35 PM
--- NOTE | 2024-01-18 19:25 | US ---
EXAMINATION TYPE: US abdomen complete DATE OF EXAM: 01/18/2024 COMPARISON: CT today CLINICAL INDICATION: Female, 38 years old with history of mid ab pain, elevated pancreatic enzymes; M id abdominal pain for 1 oe 2 weeks. hx cholecystectomy. TECHNIQUE: Grayscale and color Doppler imaging of the abdomen was performed. 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
[2024-01-18 20:04] VITALS: BP 118/71; PULSE 81; RESP 18
== END 2024-01-18 20:04 | disposition home or self-care (01) ==
LOC: EC 13:10
DX: R10.9 Unspecified abdominal pain
CPT/HCPCS: 36415; 74177; 76700; 80053; 81003; 81025; 82150; 83605; 83690; 85025; 96374; 96375; 96376; 99284

== ENCOUNTER → 2024-05-04 | Outpatient (CLI) | payer MEDICAID, OTHER ==
--- NOTE | 2024-05-04 10:40 | XR ---
EXAMINATION TYPE: XR chest 2V DATE OF EXAM: 05/04/2024 9:33 AM COMPARISON: Chest radiographs from 01/10/2024 CLINICAL INDICATION: Female, 38 years old with history of W19.XXXA FALL INITIAL ENCOUNT CH XR 2V H IP; [facility] TECHNIQUE: XR chest 2V Frontal and lateral views of the chest. FINDINGS: Lungs/Pleura: There is no evidence of pleural effusion, focal consolidation, or pneumothorax. Pulmonary vascularity: Unremarkable. Heart/mediastinum: Cardiomediastinal silhouette is unremarkable. Musculoskeletal: No acute osseous pathology. IMPRESSION: No acute cardiopulmonary disease/process. [facility], , 05/04/2024 10:38 AM
--- NOTE | 2024-05-04 10:40 | XR ---
EXAMINATION TYPE: XR Hip Complete RT DATE OF EXAM: 05/04/2024 9:33 AM COMPARISON: None CLINICAL INDICATION: Female, 38 years old with history of W19.XXXA FALL INITIAL ENCOUNT CH XR 2V H IP; [facility], pain TECHNIQUE: XR Hip Complete RT; Frontal and lateral views FINDINGS: No evidence for acute process, joint dislocation or significant soft tissue swelling. IMPRESSION: No acute process. [facility], , 05/04/2024 10:38 AM
== END | disposition home or self-care (01) ==
LOC: RADXRMAIN 08:49
PROVIDERS: ATTEND Internal Medicine
DX: W19.XXXA Unspecified fall, initial encounter (principal); M25.551 Pain in right hip
CPT/HCPCS: 71046; 73502

== ENCOUNTER 2024-11-06 20:27 | Outpatient (CLI) | payer MEDICAID, OTHER ==
--- NOTE | 2024-12-14 10:05 | P.MSEPDOC ---
Presenting Problems - Arrival Data Date of Arrival on Unit: 11/06/24 Time of Arrival on Unit: 20:27 Mode of Transport: Ambulatory - Complaint OB-Reason for Admission/Chief Complaint: Pain Comment: pt states that she was having abd pain after dog jumped on stomach Medical History - Information : 4 Para: 3 Term: 3 : 0 Abortions: Spontaneous or Elective: 0 Number of Living Children: 3 - Gestational Age Gestational Age by OWEN (wks/days): 30 Weeks and 4 Days Review of Systems - Review of Systems Constitutional: No problems Breast: No problems ENT: No problems Cardiovascular: No problems Respiratory: No problems Gastrointestinal: No problems Genitourinary: No problems Musculoskeletal: No problems Neurological: No problems Skin: No problems Medical Screen Scoring - Uterine Contractions Resting: Soft to palpation - Assessment - Baby A Baseline FHR: 155 Heart Rate - NICHD Category: Category I (Normal) NST: Reactive Physician Notification - Physician Notified Physician Notified Date: 11/06/24 Physician Notified Time: 21:15 Physician: Shani Doan Order Received: Yes Maternal Triage Index - Maternal Triage Index Presenting for scheduled procedure w/no complaint: No - Stat/Priority 1 Stat Priority 1: No - Urgent/Priority 2 Urgent Priority 2: No - Prompt/Priority 3 Prompt Priority 3: No - Non-Urgent/Priority 4 Non-Urgent Priority 4: Yes Criteria Met for Priority 4: abd pain from dog jumping on stoamch Disposition - Disposition OB Disposition: Discharge to home Discharge Date: 11/06/24 Discharge Time: 21:45 I agree with the RN Medical Screening Exam: Yes Physician's MSE Comment: I have neither seen nor examined the patient Case reviewed; plan agreed upon as documented in EMR&OBIX.: Yes Diagnosis: RELATED CONDITIONS, UNSPECIFIED, THIRD TRIMESTER
== END 2024-11-06 21:45 ==
LOC: FBPOP 20:27
PROVIDERS: ATTEND Obstetrics & Gynecology
DX: O26.893 Other specified pregnancy related conditions, third trimester (principal); Z91.048 Other nonmedicinal substance allergy status; Z3A.30 30 weeks gestation of pregnancy
CPT/HCPCS: 59025; 99213